=== PATIENT | male | born 1980 | race Caucasian/White ===

== ENCOUNTER → 2016-08-05 | Outpatient (CLI) | payer MEDICAID | LOC: RAD 12:28 | PROVIDERS: ATTEND Physician Assistant | DX: M54.5 Low back pain (principal) | CPT/HCPCS: 72148 ==

== ENCOUNTER → 2016-08-16 | Outpatient (CLI) | payer MEDICAID ==
[2016-08-16 12:07] LABS: PV SEMEN COLOR STRAW
[2016-08-16 12:08] LABS: PV SEMEN LIQUEFACTION 35 MINUTES (<61); PV SEMEN PH 8.4 (>7.1); PV SEMEN VISCOSITY HIGH (NORMAL); PV VOLUME 2.8 mL (>1.9)
[2016-08-16 12:09] LABS: PV NONMOTILE COUNT1 0; PV NONMOTILE COUNT2 0; PV ROUND CELL CONCENTRATION 0.1 X10^6/mL (<5.1); PV ROUND CELL COUNT1 0; PV ROUND CELL COUNT2 2
== END ==
LOC: LAB 10:37
PROVIDERS: ATTEND Urology
DX: Z30.09 Encounter for other general counseling and advice on contraception (principal)
CPT/HCPCS: 89321

== ENCOUNTER 2016-12-06 13:32 | Observation (INO) | payer MEDICAID ==
[2016-12-06] MEDS ORDERED: ASPIRIN 81 MG TABLET, CHEWABLE PO ONE (13:50)
[2016-12-06] MEDS ORDERED: DILTIAZEM HCL/D5W 125 ML IV PRN (13:51)
[2016-12-06] MEDS ORDERED: DILTIAZEM HCL INJ 25 MG/5 ML VIAL IV ONE (13:51)
[2016-12-06 14:10] LABS: ABSOLUTE BASOPHILS # (AUTO) 0.1 10^3/uL (0.0-0.2); ABSOLUTE EOSINOPHILS # (AUTO) 0.1 10^3/uL (0.0-0.6); ABSOLUTE LYMPHOCYTES (AUTO) 3.6 10^3/uL (0.5-4.7); ABSOLUTE MONOCYTES (AUTO) 1.2 10^3/uL (0.1-1.4); BASOPHILS % (AUTO) 0.9 % (0-2); EOSINOPHILS % (AUTO) 0.8 % (0-6); HEMATOCRIT 50.2 % (37.9-51.0); HEMOGLOBIN 16.6 g/dL (13.5-17.0); HGB HCT DIFFERENCE -0.4; LYMPHOCYTES % (AUTO) 27.8 % (13-45); MEAN CORPUSCULAR HGB CONC 33.2 g/dL (32.0-36.0); MEAN CORPUSCULAR VOLUME 93 fl (80-97); MONOCYTES % (AUTO) 9.4 % (3-13); RED BLOOD COUNT 5.37 10^6/uL (4.35-5.55); RED CELL DISTRIBUTION WIDTH 13.3 % (11.5-14.0); SEGMENTED NEUTROPHILS % (AUTO) 61.1 % (42-78)
[2016-12-06 14:34] LABS: ALANINE AMINOTRANSFERASE 37 U/L (21-72); ALBUMIN 4.5 g/dL (3.5-5.0); ALKALINE PHOSPHATASE 90 U/L (38-126); ANION GAP 13 (5-19); ASPARTATE AMINO TRANSFERASE 25 U/L (17-59); BILIRUBIN,DIRECT 0.5 mg/dL (0.0-0.4); BILIRUBIN,TOTAL 0.8 mg/dL (0.2-1.3); BLOOD UREA NITROGEN 16 mg/dL (7-20); CALCIUM 11.2 mg/dL (8.4-10.2); CARBON DIOXIDE 22 mmol/L (22-30); CHLORIDE 108 mmol/L (98-107); CREATINE KINASE 26 U/L (55-170); CREATININE RESULT 0.84 mg/dL (0.52-1.25); GLUCOSE 92 mg/dL (75-110); POTASSIUM 4.5 mmol/L (3.6-5.0); SODIUM 142.7 mmol/L (137-145); TOTAL PROTEIN 8.1 g/dL (6.3-8.2)
[2016-12-06 14:48] LABS: CREATINE KINASE MB < 0.22 ng/mL (<4.55); TROPONIN I < 0.012 ng/mL
--- NOTE | 2016-12-06 14:58 | RADIOLOGY REPORT (SQ) ---
EXAM DESCRIPTION: CHEST SINGLE VIEW COMPLETED DATE/TIME: 12/06/2016 2:26 pm REASON FOR STUDY: afib COMPARISON: 01/08/2016 NUMBER OF VIEWS: One view. TECHNIQUE: Single frontal radiographic view of the chest acquired. LIMITATIONS: None. FINDINGS: LUNGS AND PLEURA: The lungs are clear of infiltrate or pleural effusion. A subcentimeter focal density is seen in the left mid lung field, pulmonary nodule not excluded. Consider followup P A and lateral views in the department when the patient's condition permits. MEDIASTINUM AND HILAR STRUCTURES: No masses. Contour normal. HEART AND VASCULAR STRUCTURES: Heart normal in size. Normal vasculature. BONES: No acute findings. HARDWARE: None in the chest. OTHER: No other significant finding. IMPRESSION: Normal heart size. Subcentimeter focal density left mid lung field. COMMENT: Consider followup PA and lateral views in the department when patient's condition permits. TECHNICAL DOCUMENTATION: JOB ID: [id number] [employer]- All Rights Reserved
--- NOTE | 2016-12-06 15:29 | ER Document Report ---
ED General - General Chief Complaint: Arrhythmia Stated Complaint: SHORTNESS OF BREATH Time Seen by Provider: 12/06/16 13:42 Mode of Arrival: Ambulatory Information source: Patient Notes: 36-year-old male history of Marfan syndrome on flecamide complains of palpitations and A. fib. Patient admits to shortness of breath denies any chest pain, patient does admit to mild headache which did resolve. Patient denies any fevers or chills TRAVEL OUTSIDE OF THE [place] IN LAST 30 DAYS: No - HPI Onset: Just prior to arrival Onset/Duration: Sudden Quality of pain: Achy Severity: Moderate Pain Level: 2 Associated symptoms: Shortness of breath, Other Exacerbated by: Denies Relieved by: Denies Similar symptoms previously: Yes Recently seen / treated by doctor: Yes - Related Data Allergies/Adverse Reactions: hydrocodone [Hydrocodone] Allergy (Severe, Verified 09/03/15 14:39) Anaphylaxis Sulfa (Sulfonamide Antibiotics) Adverse Reaction (Severe, Verified 09/03/15 14: 39) hydromorphone HCl [From Dilaudid] Adverse Reaction (Intermediate, Verified 09/03 14:39) Past Medical History - Social History Smoking Status: Current Every Day Smoker Cigarette use (# per day): Yes Chew tobacco use (# tins/day): No Smoking Education Provided: No Frequency of alcohol use: Rare Drug Abuse: None Family History: Reviewed & Not Pertinent - Past Medical History Cardiac Medical History: Reports: Hx Atrial Fibrillation, Hx Hypercholesterolemia, Hx Hypertension Endocrine Medical History: Reports: Hx Hypothyroidism Skin Medical History: Reports Hx MRSA Past Surgical History: Reports: Hx Orthopedic Surgery - Tendon repair on L thumb , Hx Thyroid Surgery - Thyroidectomy - Immunizations Hx Diphtheria, Pertussis, Tetanus Vaccination: Yes Review of Systems - Review of Systems Notes: PHYSICAL EXAMINATION: GENERAL: Well-appearing, well-nourished and in no acute distress. HEAD: Atraumatic, normocephalic. EYES: Pupils equal round and reactive to light, extraocular movements intact, sclera anicteric, conjunctiva are normal. ENT: Nares patent, oropharynx clear without exudates. Moist mucous membranes. NECK: Normal range of motion, supple without lymphadenopathy LUNGS: Breath sounds clear to auscultation bilaterally and equal. No wheezes rales or rhonchi. HEART: A. fib RVR ABDOMEN: Soft, nontender, nondistended abdomen. No guarding, no rebound. No masses appreciated. Musculoskeletal: Normal range of motion, no pitting or edema. No cyanosis. NEUROLOGICAL: Cranial nerves grossly intact. Normal speech, normal gait. Normal sensory, motor exams PSYCH: Normal mood, normal affect. SKIN: Warm, Dry, normal turgor, no rashes or lesions noted. Physical Exam - Vital signs Vitals: Pulse Ox 98 12/06/16 13:50 Course - Re-evaluation Re-evalutation: 12/06/16 15:56 Patient was immediately started on Cardizem bolus and drip, his heart rate goes between 90s-110 on the Cardizem. I will admit the patient to the hospitalist service and is otherwise well-appearing, he notes his shortness of breath and headache have since resolved and he feels much better - Vital Signs Vital signs: Temp Pulse Resp BP Pulse Ox 97.7 F 137 H 20 127/89 H 99 12/06/16 14:00 12/06/16 14:00 12/06/16 14:00 12/06/16 14:00 12/06/16 14:00 - Laboratory Result Diagrams: 12/06/16 13:55 12/06/16 13:55 Laboratory results interpreted by me: 12/06/16 12/06/16 13:55 13:55 WBC 13.0 H Chloride 108 H Calcium 11.2 H Direct Bilirubin 0.5 H Creatine Kinase 26 L - Diagnostic Test Radiology reviewed: Image reviewed, Reports reviewed - Report given to patient - EKG Interpretation by Me EKG shows normal: Sinus rhythm, [place], Intervals, QRS Complexes - A. fib RVR Critical Care Note - Critical Care Note Total time excluding time spent on procedures (mins): 34 Comments: 36-year-old male history of Marfan syndrome A. fib presents in A. fib. Patient admits to shortness of breath with the breathing. Patient notes his heart rate is normally well controlled with his flecainide. Patient denies any chest pain shortness breath. Patient had a headache and dizziness and shortness of breath initially but on arrival symptoms have resolved with medication Discharge - Discharge Clinical Impression: Marfans syndrome, Atrial fibrillation with RVR Condition: Stable Disposition: ADMITTED OBSERVATION Admitting Provider: Hospitalist Unit Admitted: IMCU Referrals: CRISS TONEY NP [Primary Care Provider] - Follow up as needed
[2016-12-06] MEDS ORDERED: ONDANSETRON HCL INJ/PF 4 MG/2 ML SDV IV PRN (16:30)
[2016-12-06] MEDS ORDERED: OXYCODONE-ACETAMINOPHEN 5-325 MG TABLET PO PRN ×3 (16:30→18:53)
[2016-12-06] MEDS ORDERED: ONDANSETRON 4 MG TAB.RAPDIS PO PRN (16:30)
[2016-12-06] MEDS ORDERED: ACETAMINOPHEN 325 MG TABLET PO PRN (16:30)
[2016-12-06] MEDS ORDERED: CYCLOBENZAPRINE HCL 10 MG TABLET PO PRN (16:40)
--- NOTE | 2016-12-06 17:01 | PDOC H&P ---
History of Present Illness Admission Date/PCP: 12/06/16 15:59 CRISS TONEY NP Patient complains of: Atrial fibrillation with chest discomfort History of Present Illness: DAQUAN SALAZAR is a 36 year old male with known history of atrial fibrillation and a history of Marfan's syndrome who presents with A. fib with rapid ventricular rate. Patient reports that around noon he began having palpitations and a heart rate of 150. Patient also had some chest tightness associated with this. Once his heart rate was decreased with the diltiazem IV his chest discomfort went away. At the time of my exam the patient had converted back into a normal sinus rhythm. The patient currently is chest pain- free. He reports he is followed by Dr. Hathaway at [facility]. He has not had a ablation. The patient on flecainide and atenolol for control of his heart rate. To any fevers or chills. He denies any cough. He denies any orthopnea PND or lower extremity edema. He does have hypothyroidism and has been compliant with his Synthroid and his TSH is normal. Past Medical History Cardiac Medical History: Reports: Atrial Fibrillation, Hyperlipidema, Hypertension Neurological Medical History: Reports: None Endocrine Medical History: Reports: Hypothyroidism Malignancy Medical History: Reports: Other - Thyroid cancer Musculoskeltal Medical History: Reports: Arthritis, Other - Marfan syndrome Psychiatric Medical History: Reports: None Infectious Medical History: Reports: Methicillin-Resistant Staph Aureus Past Surgical History Past Surgical History: Reports: Orthopedic Surgery - Tendon repair on L thumb, Thyroidectomy - Secondary to thyroid cancer. Social History Information Source: Patient Lives with: Spouse/Significant other Smoking Status: Current Every Day Smoker Frequency of Alcohol Use: Social Hx Recreational Drug Use: No Drugs: None Hx Prescription Drug Abuse: No - Advance Directive Resuscitation Status: Full Code Surrogate healthcare decision maker:: His Family History Family History: mother is alive and 57. She had a tumor of the adrenal gland removed. His father at age 36 from an aneurysmal rupture secondary to Marfan syndrome Parental Family History Reviewed: Yes Children Family History Reviewed: No Sibling(s) Family History Reviewed.: No Medication/Allergy Allergies/Adverse Reactions: hydrocodone [Hydrocodone] Allergy (Severe, Verified 09/03/15 14:39) Anaphylaxis Sulfa (Sulfonamide Antibiotics) Adverse Reaction (Severe, Verified 09/03/15 14: 39) hydromorphone HCl [From Dilaudid] Adverse Reaction (Intermediate, Verified 09/03 14:39) Review of Systems Constitutional: ABSENT: chills, fever(s), headache(s), weight gain, weight loss Eyes: ABSENT: visual disturbances Ears: ABSENT: hearing changes Cardiovascular: PRESENT: chest pain, dyspnea on exertion, palpitations. ABSENT : edema, orthropnea Respiratory: ABSENT: cough, hemoptysis Gastrointestinal: ABSENT: abdominal pain, constipation, diarrhea, hematemesis, hematochezia, nausea, vomiting Genitourinary: ABSENT: dysuria, hematuria Musculoskeletal: ABSENT: joint swelling Integumentary: ABSENT: rash, wounds Neurological: ABSENT: abnormal gait, abnormal speech, confusion, dizziness, focal weakness, syncope Psychiatric: ABSENT: anxiety, depression, homidical ideation, suicidal ideation Endocrine: ABSENT: cold intolerance, heat intolerance, polydipsia, polyuria Physical Exam Vital Signs: Temp Pulse Resp BP Pulse Ox 97.7 F 137 H 12 130/97 H 98 12/06/16 14:00 12/06/16 14:00 12/06/16 16:01 12/06/16 16:01 12/06/16 16:01 General appearance: PRESENT: no acute distress, well-developed, well-nourished Head exam: PRESENT: atraumatic, normocephalic Eye exam: PRESENT: conjunctiva pink, EOMI, PERRLA. ABSENT: scleral icterus Ear exam: PRESENT: normal external ear exam Mouth exam: PRESENT: moist, tongue midline Neck exam: ABSENT: carotid bruit, JVD, lymphadenopathy, thyromegaly Respiratory exam: PRESENT: clear to auscultation melanie. ABSENT: rales, rhonchi, wheezes Cardiovascular exam: PRESENT: RRR. ABSENT: diastolic murmur, rubs, systolic murmur Pulses: PRESENT: normal dorsalis pedis pul Vascular exam: PRESENT: normal capillary refill GI/Abdominal exam: PRESENT: normal bowel sounds, soft. ABSENT: distended, guarding, mass, organolmegaly, rebound, tenderness Rectal exam: PRESENT: deferred Extremities exam: ABSENT: calf tenderness, clubbing, pedal edema Neurological exam: PRESENT: alert, awake, oriented to person, oriented to place , oriented to time, oriented to situation, CN II-XII grossly intact. ABSENT: motor sensory deficit Psychiatric exam: PRESENT: appropriate affect, normal mood. ABSENT: homicidal ideation, suicidal ideation Skin exam: PRESENT: dry, intact, warm. ABSENT: cyanosis, rash Results Impressions: Chest X-Ray 12/06/16 13:50 IMPRESSION: Normal heart size. Subcentimeter focal density left mid lung field. Assessment & Plan - Diagnosis (1) Atrial fibrillation with RVR Is this a current diagnosis for this admission?: YesPlan: Is currently on flecainide, and atenolol. He has been on a diltiazem drip with resumption of normal sinus rhythm. Will start on p.o. diltiazem. Check serial cardiac enzymes to make certain he has not had an acute cardiac event. (2) Hypothyroidism Is this a current diagnosis for this admission?: YesPlan: Is on Synthroid. His TSH is normal. (3) Back pain Is this a current diagnosis for this admission?: YesPlan: Continue with Flexeril and oxycodone. (4) Aortic aneurysm Is this a current diagnosis for this admission?: Yes (5) Marfans syndrome Is this a current diagnosis for this admission?: Yes - Time Time Spent: 50 to 70 Minutes - Inpatient Certification Medical Necessity: Need Close Monitoring Due to Risk of Patient Decompensation - Plan Summary Plan Summary: We will admit as an observation since he has had resumption of normal sinus rhythm.
[2016-12-06] MEDS ORDERED: CELECOXIB 200 MG CAPSULE PO SCH (18:00)
[2016-12-06] MEDS: DILTIAZEM HCL 30 MG TABLET PO SCH ×2 (18:34→23:30)
[2016-12-06] MEDS ORDERED: OXYCODONE HCL IR 5 MG TABLET PO PRN (18:52)
--- NOTE | 2016-12-06 19:24 | EKG REPORT ---
SEVERITY:- ABNORMAL ECG - ATRIAL FLUTTER, A-RATE [address] DEPRESSION, DIFFUSE LEADS ABNORMAL T, CONSIDER ISCHEMIA, DIFFUSE LEADS BORDERLINE PROLONGED QT INTERVAL : Confirmed by: Justin Moctezuma MD 06-Dec-2016 19:22:48
[2016-12-06 21:27] LABS: CREATINE KINASE MB < 0.22 ng/mL (<4.55); TROPONIN I < 0.012 ng/mL
[2016-12-06] MEDS ORDERED: FLECAINIDE ACETATE 100 MG TABLET PO SCH (22:00)
[2016-12-06] MEDS ORDERED: NICOTINE 7 MG/24 HR PATCH.TD24 TD ONE (22:00)
[2016-12-07 02:10] LABS: HEMATOCRIT 42.4 % (37.9-51.0); HEMOGLOBIN 14.2 g/dL (13.5-17.0); HGB HCT DIFFERENCE 0.2; MEAN CORPUSCULAR HGB CONC 33.6 g/dL (32.0-36.0); MEAN CORPUSCULAR VOLUME 93 fl (80-97); RED BLOOD COUNT 4.59 10^6/uL (4.35-5.55); RED CELL DISTRIBUTION WIDTH 13.1 % (11.5-14.0); WHITE BLOOD COUNT 11.3 10^3/uL (4.0-10.5)
[2016-12-07 02:36] LABS: ANION GAP 9 (5-19); BLOOD UREA NITROGEN 19 mg/dL (7-20); CALCIUM 9.6 mg/dL (8.4-10.2); CARBON DIOXIDE 25 mmol/L (22-30); CHLORIDE 106 mmol/L (98-107); CREATININE RESULT 0.91 mg/dL (0.52-1.25); GLUCOSE 90 mg/dL (75-110); MAGNESIUM 2.1 mg/dL (1.6-2.3); POTASSIUM 4.3 mmol/L (3.6-5.0); SODIUM 140.4 mmol/L (137-145)
[2016-12-07 02:37] LABS: CREATINE KINASE < 20 U/L (55-170)
[2016-12-07 02:45] LABS: CREATINE KINASE MB < 0.22 ng/mL (<4.55); TROPONIN I < 0.012 ng/mL
[2016-12-07 05:54] VITALS: BP 129/63
[2016-12-07] MEDS: DILTIAZEM HCL 30 MG TABLET PO SCH (05:59)
[2016-12-07] MEDS ORDERED: DILTIAZEM HCL 120 MG CAP.SR.24H PO ONE (08:45)
[2016-12-07 09:01] LABS: CREATINE KINASE MB < 0.22 ng/mL (<4.55); TROPONIN I < 0.012 ng/mL
[2016-12-07] MEDS ORDERED: ASPIRIN 325 MG TABLET, ENT COATED PO SCH (10:00)
[2016-12-07] MEDS ORDERED: ATENOLOL 50 MG TABLET PO SCH (10:00)
[2016-12-07] MEDS ORDERED: LEVOTHYROXINE SODIUM 0.1 MG TABLET PO SCH (10:00)
--- NOTE | 2016-12-07 10:30 | PDOC DISCHARGE SUMMARY ---
General - Admit/Disc Date/PCP Admission Date/Primary Care Provider: 12/06/16 15:59 CRISS TONEY NP Discharge Date: 12/07/16 - Discharge Diagnosis (1) Atrial fibrillation with RVR Is this a current diagnosis for this admission?: YesSummary: resumption of normal sinus rhythm after being on diltiazem. (2) Hypothyroidism Is this a current diagnosis for this admission?: YesSummary: Normal TSH (3) Back pain Is this a current diagnosis for this admission?: Yes (4) Aortic aneurysm Is this a current diagnosis for this admission?: Yes (5) Marfans syndrome Is this a current diagnosis for this admission?: Yes - Additional Information Resuscitation Status: Full Code Discharge Diet: Cardiac Discharge Activity: Activity As Tolerated Home Medications: Atenolol [Tenormin 100 mg Tablet] 100 mg PO DAILY 12/06/16 Celecoxib [Celebrex 200 mg Capsule] 200 mg PO Q12 12/06/16 Cyclobenzaprine HCl [Flexeril 10 mg Tablet] 20 mg PO QHS 12/06/16 Flecainide 50 Mg 75 mg PO Q12 12/06/16 Levothyroxine Sodium [Synthroid] 200 mcg PO QAM 12/06/16 Oxycodone HCl/Acetaminophen [Percocet 10-325 mg Tablet] 1 each PO QIDP PRN 12/06 Pramipexole Di-HCl [Mirapex 0.25 mg Tablet] 0.5 mg PO QHS 12/06/16 Aspirin [Ecotrin 325 mg EC Tablet] 325 mg PO DAILY tabec 12/07/16 Diltiazem HCl [Cardizem Cd 120 mg Capsule] 1 cap.sr PO DAILY #30 cap.sr History of Present Illness History of Present Illness: DAQUAN SALAZAR is a 36 year old male with known history of atrial fibrillation and a history of Marfan's syndrome who presents with A. fib with rapid ventricular rate. Patient reports that around noon he began having palpitations and a heart rate of 150. Patient also had some chest tightness associated with this. Once his heart rate was decreased with the diltiazem IV his chest discomfort went away. At the time of my exam the patient had converted back into a normal sinus rhythm. The patient currently is chest pain- free. He reports he is followed by Dr. Hathaway at [facility]. He has not had a ablation. The patient on flecainide and atenolol for control of his heart rate. To any fevers or chills. He denies any cough. He denies any orthopnea PND or lower extremity edema. He does have hypothyroidism and has been compliant with his Synthroid and his TSH is normal. Hospital Course Hospital Course: Has a history of atrial fibrillation and Marfan syndrome who presented with atrial fibrillation with rapid ventricular rate. The patient was started on a diltiazem drip. The patient had conversion back to a normal sinus rhythm. The patient had been on flecainide and atenolol. The patient was changed from IV diltiazem to p.o. diltiazem. He was continued on with the flecainide and atenolol. The patient is followed by electrophysiology Dr. Hathaway at [facility]. He is instructed to follow-up with him in the next 1-2 weeks. Physical Exam Vital Signs: Temp Pulse Resp BP Pulse Ox 97.8 F 67 16 129/63 H 94 12/07/16 08:33 12/07/16 08:33 12/07/16 08:33 12/07/16 08:33 12/07/16 08:33 Intake & Output 12/06/16 12/07/16 12/08/16 06:59 06:59 06:59 Intake Total 200 Balance 200 Weight 125 kg General appearance: PRESENT: no acute distress Eye exam: PRESENT: conjunctiva pink. ABSENT: scleral icterus Mouth exam: PRESENT: moist, tongue midline Neck exam: ABSENT: JVD Respiratory exam: PRESENT: clear to auscultation melanie. ABSENT: rales, rhonchi, wheezes Cardiovascular exam: PRESENT: RRR. ABSENT: diastolic murmur, rubs, systolic murmur GI/Abdominal exam: PRESENT: normal bowel sounds, soft. ABSENT: distended, guarding, mass, organolmegaly, rebound, tenderness Extremities exam: ABSENT: calf tenderness, clubbing, pedal edema Neurological exam: PRESENT: alert, awake, oriented to person, oriented to place , oriented to time, oriented to situation, CN II-XII grossly intact. ABSENT: motor sensory deficit Psychiatric exam: PRESENT: appropriate affect Skin exam: PRESENT: dry, intact, warm. ABSENT: cyanosis, rash Results Laboratory Results: 12/07/16 01:58 12/07/16 01:58 12/07/16 12/07/16 01:58 01:58 WBC 11.3 H RBC 4.59 Hgb 14.2 D Hct 42.4 MCV 93 MCH 31.0 MCHC 33.6 RDW 13.1 Plt Count 174 Sodium 140.4 Potassium 4.3 Chloride 106 Carbon Dioxide 25 Anion Gap 9 BUN 19 Creatinine 0.91 Est GFR ( Amer) > 60 Est GFR (Non-Af Amer) > 60 Glucose 90 Calcium 9.6 Magnesium 2.1 12/06/16 12/06/16 12/07/16 20:10 20:10 01:58 Creatine Kinase < 20 L CK-MB (CK-2) < 0.22 < 0.22 Troponin I < 0.012 < 0.012 12/07/16 12/07/16 01:58 08:05 Creatine Kinase < 20 L CK-MB (CK-2) < 0.22 Troponin I < 0.012 Impressions: Chest X-Ray 12/06/16 13:50 IMPRESSION: Normal heart size. Subcentimeter focal density left mid lung field. Qualifiers PATEINT BEING DISCHARGED WITH ANY OF THE FOLLOWING DIAGNOSIS?: No Plan Discharge Plan: Is discharged home. Will follow up with his signal timer in 1-2 weeks. Time Spent: Less than 30 Minutes
== END 2016-12-07 09:13 | disposition home or self-care (01) ==
LOC: ER 13:32 → INTOOBSV 15:59 → EH 15:59 → 3W 18:00
PROVIDERS: ADMIT Family Medicine; ATTEND Family Medicine
DX: I48.91 Unspecified atrial fibrillation (principal); E03.9 Hypothyroidism, unspecified; M54.9 Dorsalgia, unspecified; I71.9 Aortic aneurysm of unspecified site, without rupture; Q87.40 Marfan syndrome, unspecified; F17.210 Nicotine dependence, cigarettes, uncomplicated; M19.90 Unspecified osteoarthritis, unspecified site; R51 Headache; Z79.899 Other long term (current) drug therapy; Z79.82 Long term (current) use of aspirin; Z79.1 Long term (current) use of non-steroidal anti-inflammatories (NSAID); Z79.891 Long term (current) use of opiate analgesic; Z85.850 Personal history of malignant neoplasm of thyroid; Z98.890 Other specified postprocedural states; Z84.81 Family history of carrier of genetic disease
CPT/HCPCS: 93005; 96376; 99291; 96365; 96366; 36415 ×2; 82553 ×2; 82550 ×2; 83735; 84443; 85025; 85027; 80048; 80053; 84484 ×2; 71010; 93010; G0378 ×3; J3490 ×10

== ENCOUNTER 2016-12-13 17:10 | Emergency (ER) | payer MEDICAID ==
--- NOTE | 2016-12-13 20:28 | ER Document Report ---
ED GI/ - General Chief Complaint: L flank pain, lower back pain and nausea Stated Complaint: FLANK PAIN Time Seen by Provider: 12/13/16 20:28 Mode of Arrival: Ambulatory Information source: Patient Notes: 36 yo with Marfan's syndrome, male noticed pain 2-3 days ago lower left quadrant of abdomen causing him to double over, get nauseated, went away after BM. Pain recurred at 2 pm stabbing left flank, radiates into left testicle, waxes and wanes. Now the pain is 2/5 with ache and pressure after morphine. No hx stones. No change in urine stream, no fever or chills. Torodol given on ambulance. TRAVEL OUTSIDE OF THE [place] IN LAST 30 DAYS: No - Related Data Allergies/Adverse Reactions: hydrocodone [Hydrocodone] Allergy (Severe, Verified 09/03/15 14:39) Anaphylaxis Sulfa (Sulfonamide Antibiotics) Adverse Reaction (Severe, Verified 09/03/15 14: 39) hydromorphone HCl [From Dilaudid] Adverse Reaction (Intermediate, Verified 09/03 14:39) Past Medical History - General Information source: Patient - Social History Smoking Status: Unknown if Ever Smoked Frequency of alcohol use: None Drug Abuse: None Lives with: Spouse/Significant other Family History: Reviewed & Not Pertinent - Past Medical History Cardiac Medical History: Reports: Hx Atrial Fibrillation, Hx Heart Attack - x2 Dr. Mirza was dr on last hrt attack, Hx Hypercholesterolemia, Hx Hypertension Endocrine Medical History: Reports: Hx Hypothyroidism Renal/ Medical History: Denies: Hx Peritoneal Dialysis Musculoskeltal Medical History: Reports Hx Arthritis Skin Medical History: Reports Hx MRSA Infectious Medical History: Reports: Hx MRSA Past Surgical History: Reports: Hx Orthopedic Surgery - Tendon repair on L thumb , Hx Thyroid Surgery - Thyroidectomy - Immunizations Hx Diphtheria, Pertussis, Tetanus Vaccination: Yes Review of Systems - Review of Systems Constitutional: No symptoms reported EENT: No symptoms reported Cardiovascular: No symptoms reported Respiratory: No symptoms reported Gastrointestinal: See HPI Genitourinary: See HPI Male Genitourinary: No symptoms reported Musculoskeletal: No symptoms reported Skin: No symptoms reported Hematologic/Lymphatic: No symptoms reported Neurological/Psychological: No symptoms reported Physical Exam - Vital signs Vitals: Temp Pulse Resp BP Pulse Ox 98.1 F 74 20 125/76 97 12/13/16 18:45 12/13/16 18:45 12/13/16 18:45 12/13/16 18:45 12/13/16 18:45 Interpretation: Normal - General General appearance: Appears well, Alert - HEENT Head: Normocephalic, Atraumatic Eyes: Normal Conjunctiva: Normal Pupils: PERRL Pharynx: Normal Neck: Supple. No: Lymphadenopathy - Respiratory Respiratory status: No respiratory distress Chest status: Nontender Breath sounds: Normal Chest palpation: Normal - Cardiovascular Rhythm: Regular Heart sounds: Normal auscultation Murmur: No - Abdominal Inspection: Normal Distension: No distension Bowel sounds: Normal Tenderness: Tender - llq. No: McBurney's point Organomegaly: No organomegaly - Back Back: Normal, Nontender - Extremities General upper extremity: Normal inspection, Nontender, Normal color, Normal ROM , Normal temperature General lower extremity: Normal inspection, Nontender, Normal color, Normal ROM , Normal temperature, Normal weight bearing. No: Radha's sign - Neurological Neuro grossly intact: Yes Cognition: Normal Orientation: AAOx4 [place] Coma Scale Eye Opening: Spontaneous [place] Coma Scale Verbal: Oriented [place] Coma Scale Motor: Obeys Commands [place] Coma Scale Total: 15 Speech: Normal Motor strength normal: LUE, RUE, LLE, RLE Sensory: Normal - Psychological Associated symptoms: Normal affect, Normal mood - Skin Skin Temperature: Warm Skin Moisture: Dry Skin Color: Normal Course - Re-evaluation Re-evalutation: 12/13/16 22:45 CT shows tiny distal left ureteral obstructing stone . patient is more comfortable after pain medication - Vital Signs Vital signs: Temp Pulse Resp BP Pulse Ox 98.1 F 74 20 136/97 H 99 12/13/16 18:45 12/13/16 18:45 12/13/16 18:45 12/13/16 22:23 12/13/16 22:23 - Laboratory Result Diagrams: 12/13/16 22:22 12/13/16 22:22 Laboratory results interpreted by me: 12/13/16 12/13/16 12/13/16 22:22 22:22 22:33 WBC 12.1 H Chloride 109 H Carbon Dioxide 20 L Urine Protein 30 H Urine Blood LARGE H Discharge - Discharge Clinical Impression: obstructing distal left ureter stone Condition: Good Disposition: HOME, SELF-CARE Instructions: Kidney Stone ([facility]), Flomax ([facility]), Oral Narcotic Medication ([facility]) , Antinausea Medication ([facility]) Additional Instructions: you can stop the flomax when the pain resolves pain Will go away when the stone is in the bladder return to Emergency room any increased pain fever urine culture is pending see urologist for follow up you were given 3 doses of morphine 5mg IV for the obstructive uropathy pain Prescriptions: Ibuprofen [Motrin 800 mg Tablet] 800 mg PO Q8HP PRN #20 tab PRN Reason: Tamsulosin HCl [Flomax 0.4 mg Cap.sr] 0.4 mg PO DAILY #6 cap.sr.24h Referrals: SANDRITA CHUA MD [[facility] DUVALL] - Follow up as needed
[2016-12-13] MEDS ORDERED: ONDANSETRON HCL INJ/PF 4 MG/2 ML SDV IV ONE (20:55)
[2016-12-13] MEDS: MORPHINE SULFATE 10 MG/ML INJ IV PRN ×2 (21:46→22:30)
[2016-12-13 22:32] LABS: ABSOLUTE BASOPHILS # (AUTO) 0.1 10^3/uL (0.0-0.2); ABSOLUTE EOSINOPHILS # (AUTO) 0.1 10^3/uL (0.0-0.6); ABSOLUTE LYMPHOCYTES (AUTO) 3.4 10^3/uL (0.5-4.7); ABSOLUTE MONOCYTES (AUTO) 1.1 10^3/uL (0.1-1.4); ABSOLUTE NEUT (AUTO) 7.3 10^3/uL (1.7-8.2); BASOPHILS % (AUTO) 0.9 % (0-2); EOSINOPHILS % (AUTO) 0.9 % (0-6); HEMATOCRIT 43.2 % (37.9-51.0); HEMOGLOBIN 14.2 g/dL (13.5-17.0); HGB HCT DIFFERENCE -0.6; MEAN CORPUSCULAR HEMOGLOBIN 30.7 pg (27.0-33.4); MEAN CORPUSCULAR HGB CONC 32.9 g/dL (32.0-36.0); MEAN CORPUSCULAR VOLUME 93 fl (80-97); MONOCYTES % (AUTO) 9.5 % (3-13); RED BLOOD COUNT 4.63 10^6/uL (4.35-5.55); SEGMENTED NEUTROPHILS % (AUTO) 60.7 % (42-78); WHITE BLOOD COUNT 12.1 10^3/uL (4.0-10.5)
[2016-12-13 22:35] VITALS: BP 136/97
[2016-12-13 22:49] LABS: ALANINE AMINOTRANSFERASE 47 U/L (21-72); ALBUMIN 3.9 g/dL (3.5-5.0); ALKALINE PHOSPHATASE 90 U/L (38-126); ANION GAP 12 (5-19); ASPARTATE AMINO TRANSFERASE 20 U/L (17-59); BILIRUBIN,DIRECT 0.3 mg/dL (0.0-0.4); BILIRUBIN,TOTAL 0.4 mg/dL (0.2-1.3); BLOOD UREA NITROGEN 13 mg/dL (7-20); CALCIUM 9.3 mg/dL (8.4-10.2); CARBON DIOXIDE 20 mmol/L (22-30); CHLORIDE 109 mmol/L (98-107); CREATININE RESULT 1.17 mg/dL (0.52-1.25); GLUCOSE 86 mg/dL (75-110); LIPASE 65.2 U/L (23-300); POTASSIUM 3.9 mmol/L (3.6-5.0); SODIUM 140.9 mmol/L (137-145)
--- NOTE | 2016-12-13 22:52 | RADIOLOGY REPORT (SQ) ---
EXAM DESCRIPTION: CT LTD RENAL STONE PROTOCOL ON COMPLETED DATE/TIME: 12/13/2016 10:36 pm REASON FOR STUDY: LLQ pain, Left flank pain COMPARISON: None. TECHNIQUE: CT scan of the abdomen and pelvis performed without intravenous or oral contrast. Images reviewed with lung, soft tissue, and bone windows. Reconstructed coronal and sagittal MPR images revi ewed. All images stored on PACS. All CT scanners at this facility use dose modulation, iterative reconstruction, and/or weight based d osing when appropriate to reduce radiation dose to as low as reasonably achievable (ALARA). [facility]: Dose Right [facility]: CareDose [facility]: Dose Right [facility]: Teradose 4D [facility]: Fluent Home RADIATION DOSE: 24.61mGy. LIMITATIONS: None. FINDINGS: LOWER CHEST: No significant findings. No nodules or infiltrates. NON-CONTRASTED LIVER, SPLEEN, ADRENALS: Evaluation limited by lack of IV contrast. No identified sign ificant masses. PANCREAS: No masses. No peripancreatic inflammatory changes. GALLBLADDER: No identified stones by CT criteria. No inflammatory changes to suggest cholecystitis. RIGHT KIDNEY AND URETER: No suspicious masses. Assessment limited by lack of IV contrast. No signif icant calcifications. No hydronephrosis or hydroureter. LEFT KIDNEY AND URETER: No suspicious masses. Assessment limited by lack of IV contrast. No renal c alculi are identified. A tiny obstructing calculus is identified in the distal left ureter. There is mild hydronephrosis of the left kidney and fullness of the left ureter proximal to the level of th e obstructing calculus. AORTA AND RETROPERITONEUM: No aneurysm. No retroperitoneal masses or adenopathy. BOWEL AND PERITONEAL CAVITY: No obvious masses or inflammatory changes. No free fluid. APPENDIX: Normal. PELVIS, BLADDER, AND ABDOMINAL WALL:No abnormal masses. No free fluid. Bladder normal. BONES: No significant findings. OTHER: No other significant finding. IMPRESSION: Tiny obstructing calculus in the distal left ureter is noted above. No renal calculi ar e identified. Other findings as noted above TECHNICAL DOCUMENTATION: JOB ID: [id number] Quality ID # [id number]: Final reports with documentation of one or more dose reduction techniques (e.g., Au tomated exposure control, adjustment of the mA and/or kV according to patient size, use of iterative reconstruction technique) 2010 [employer]- All Rights Reserved
[2016-12-13] MEDS ORDERED: TAMSULOSIN HCL 0.4 MG CAP.SR.24H PO ONE (23:08)
[2016-12-13] MEDS ORDERED: ONDANSETRON ODT 4 MG TAB (6 TAB/DSPK) PO PRN (23:13)
[2016-12-13] MEDS ORDERED: MORPHINE SULFATE 10 MG/ML INJ IV ONE (23:24)
[2016-12-13 23:33] LABS: APPEARANCE,URINE CLOUDY; BILIRUBIN,URINE NEGATIVE (NEGATIVE); GLUCOSE, URINE NEGATIVE (NEGATIVE); KETONES,URINE NEGATIVE (NEGATIVE); LEUKOCYTE ESTERASE,URINE NEGATIVE (NEGATIVE); NITRITE,URINE NEGATIVE (NEGATIVE); PROTEIN,URINE 30 mg/dL (NEGATIVE); URINE SPECIFIC GRAVITY 1.015; UROBILINOGEN,URINE NEGATIVE mg/dL (<2.0)
== END 2016-12-14 00:12 | disposition home or self-care (01) ==
LOC: ER 17:10
DX: N20.1 Calculus of ureter (principal); R10.9 Unspecified abdominal pain; M54.5 Low back pain; R11.0 Nausea; E78.00 Pure hypercholesterolemia, unspecified; E03.9 Hypothyroidism, unspecified; I48.91 Unspecified atrial fibrillation; Z88.2 Allergy status to sulfonamides; Z88.6 Allergy status to analgesic agent; Z86.14 Personal history of Methicillin resistant Staphylococcus aureus infection; I25.2 Old myocardial infarction
CPT/HCPCS: 96376; 99284; 96374; 96375; 36415; 87086; 83690; 85025; 80053; 81001; 76380; J2270 ×2; J3490; J2405

== ENCOUNTER 2017-02-28 17:01 | Emergency (ER) | payer MEDICAID ==
--- NOTE | 2017-02-28 17:33 | ER Document Report ---
ED Medical Screen (RME) - General Chief Complaint: Abdominal Pain Stated Complaint: ABDOMINAL PAIN,NAUSEA Time Seen by Provider: 02/28/17 17:29 Mode of Arrival: Ambulatory Information source: Patient Notes: 36-year-old male presents with complaints of constipation, he notes he has not had a bowel movement 3 days has attempted multiple methods to remove the stool. Patient denies any vomiting but admits to nausea denies any previous similar episodes I have greeted and performed a rapid initial assessment of this patient. A comprehensive ED assessment and evaluation of the patient, analysis of test results and completion of the medical decision making process will be conducted by additional ED providers. PHYSICAL EXAMINATION: GENERAL: Well-appearing, well-nourished and in no acute distress. HEAD: Atraumatic, normocephalic. EYES: Pupils equal round extraocular movements intact, conjunctiva are normal. ENT: Nares patent NECK: Normal range of motion LUNGS: No respiratory distress Musculoskeletal: Normal range of motion NEUROLOGICAL: Normal speech, normal gait. PSYCH: Normal mood, normal affect. SKIN: Warm, Dry, normal turgor, no rashes or lesions noted. TRAVEL OUTSIDE OF THE [place] IN LAST 30 DAYS: No - Related Data Allergies/Adverse Reactions: hydrocodone [Hydrocodone] Allergy (Severe, Verified 02/28/17 17:04) Anaphylaxis Sulfa (Sulfonamide Antibiotics) Adverse Reaction (Severe, Verified 02/28/17 17: 04) hydromorphone HCl [From Dilaudid] Adverse Reaction (Intermediate, Verified 02/28 17:04) Past Medical History - Social History Frequency of alcohol use: None Drug Abuse: None - Past Medical History Cardiac Medical History: Reports: Hx Atrial Fibrillation, Hx Heart Attack - x2 Dr. Mirza was dr on last hrt attack, Hx Hypercholesterolemia, Hx Hypertension Endocrine Medical History: Reports: Hx Hypothyroidism Renal/ Medical History: Denies: Hx Peritoneal Dialysis Musculoskeltal Medical History: Reports Hx Arthritis Skin Medical History: Reports Hx MRSA Infectious Medical History: Reports: Hx MRSA Past Surgical History: Reports: Hx Orthopedic Surgery - Tendon repair on L thumb , Hx Thyroid Surgery - Thyroidectomy - Immunizations Hx Diphtheria, Pertussis, Tetanus Vaccination: Yes
[2017-02-28] MEDS ORDERED: LACTULOSE SYRUP 20 GM/30 ML UDCUP PO ONE (18:26)
[2017-02-28] MEDS ORDERED: MINERAL OIL ENEMA 133 ML PR ONE (18:52)
--- NOTE | 2017-02-28 18:58 | ER Document Report ---
ED General - General Chief Complaint: Abdominal Pain Stated Complaint: ABDOMINAL PAIN,NAUSEA Time Seen by Provider: 02/28/17 17:29 Mode of Arrival: Ambulatory Notes: Patient is a 36-year-old male with past medical history of Marfan syndrome who presents without being able have a bowel movement in 3 days. States he has tried milk of magnesia as well as a suppository at home without any relief. Describes an intermittent mild, cramping abdominal pain that is diffuse in nature and not present at time of this evaluation. Denies history of similar symptoms in the past. Admits that he was using prescribed narcotics up until 5 days ago. States he normally has a daily bowel movement. Denies any vomiting, shortness of breath or chest pain. No prior history of abdominal surgery. He has not seen his primary care doctor regarding today's concerns. TRAVEL OUTSIDE OF THE [place] IN LAST 30 DAYS: No - Related Data Allergies/Adverse Reactions: hydrocodone [Hydrocodone] Allergy (Severe, Verified 02/28/17 17:04) Anaphylaxis Sulfa (Sulfonamide Antibiotics) Adverse Reaction (Severe, Verified 02/28/17 17: 04) hydromorphone HCl [From Dilaudid] Adverse Reaction (Intermediate, Verified 02/28 17:04) Past Medical History - General Information source: Patient - Social History Smoking Status: Current Every Day Smoker Frequency of alcohol use: None Drug Abuse: None Lives with: Spouse/Significant other Family History: Reviewed & Not Pertinent Patient has suicidal ideation: No Patient has homicidal ideation: No - Past Medical History Cardiac Medical History: Reports: Hx Atrial Fibrillation, Hx Heart Attack - x2 Dr. Mirza was dr on last hrt attack, Hx Hypercholesterolemia, Hx Hypertension Endocrine Medical History: Reports: Hx Hypothyroidism Renal/ Medical History: Denies: Hx Peritoneal Dialysis Musculoskeltal Medical History: Reports Hx Arthritis Skin Medical History: Reports Hx MRSA Infectious Medical History: Reports: Hx MRSA Past Surgical History: Reports: Hx Orthopedic Surgery - Tendon repair on L thumb , Hx Thyroid Surgery - Thyroidectomy - Immunizations Hx Diphtheria, Pertussis, Tetanus Vaccination: Yes Review of Systems - Review of Systems Notes: Constitutional: Negative for fever. HENT: Negative for sore throat. Eyes: Negative for visual changes. Cardiovascular: Negative for chest pain. Respiratory: Negative for shortness of breath. Gastrointestinal: Positive for abdominal cramping and constipation Genitourinary: Negative for dysuria. Musculoskeletal: Negative for back pain. Skin: Negative for rash. Neurological: Negative for headaches, weakness or numbness. 10 point ROS negative except as marked above and in HPI. Physical Exam - Vital signs Vitals: Temp Pulse Resp BP Pulse Ox 98.0 F 72 19 139/84 H 98 02/28/17 20:20 02/28/17 20:20 02/28/17 20:20 02/28/17 20:20 02/28/17 20:20 Interpretation: Normal Notes: PHYSICAL EXAMINATION: GENERAL: Well-appearing, well-nourished and in no acute distress. HEAD: Atraumatic, normocephalic. EYES: Pupils equal round and reactive to light, extraocular movements intact, sclera anicteric, conjunctiva are normal. ENT: nares patent, oropharynx clear without exudates. Moist mucous membranes. NECK: Normal range of motion, supple without lymphadenopathy LUNGS: Breath sounds clear to auscultation bilaterally and equal. No wheezes rales or rhonchi. HEART: Regular rate and rhythm without murmurs ABDOMEN: Soft, nontender, normoactive bowel sounds. No guarding, no rebound. No masses appreciated. EXTREMITIES: Normal range of motion, no pitting or edema. No cyanosis. NEUROLOGICAL: No focal neurological deficits. Moves all extremities spontaneously and on command. PSYCH: Normal mood, normal affect. SKIN: Warm, Dry, normal turgor, no rashes or lesions noted. Course - Re-evaluation Re-evalutation: 02/28/17 18:55 Patient presents complaining of inability to have a bowel movement for the past 3 days. Patient has no prior history of abdominal surgeries, no appreciable hernia on exam and no focal abdominal tenderness. Denies any significant abdominal pain and describes it more as cramping and a feeling of rectal heaviness like he needs to have a bowel movement. Patient was using 20 mg of oxycodone daily up into the last 5 days for chronic pain. Suspect that this likely contributed to his constipation. Patient does not have any symptoms to suggest an acute bowel obstruction as he has not had any vomiting, is to continue to tolerate oral intake, continues to pass flatus. I do not believe any imaging or labs are indicated at this time given patient's clinical history and examination. Will proceed with an enema and lactulose and reassess after bowel movement. 02/28/17 20:10 Patient has had complete resolution of his abdominal pain after having a large bowel movement. At this time will discharge with return precautions and follow- up recommendations. Verbal discharge instructions given a the bedside and opportunity for questions given. Medication warnings reviewed. Patient is in agreement with this plan and has verbalized understanding of return precautions and the need for primary care follow-up in the next 24-72 hours. - Vital Signs Vital signs: Temp Pulse Resp BP Pulse Ox 98.0 F 72 19 139/84 H 98 02/28/17 20:20 02/28/17 20:20 02/28/17 20:20 02/28/17 20:20 02/28/17 20:20 Discharge - Discharge Clinical Impression: Constipation Qualifiers: Constipation type: unspecified constipation type Qualified Code(s): K59.00 - Constipation, unspecified Condition: Good Disposition: HOME, SELF-CARE Additional Instructions: For your constipation: You should take 8 caps of MiraLAX and placed in 1 liter of Gatorade. Drink one half of the solution and wait 4 hours. If you do not have a bowel movement take the remaining half of the solution. Return if you have any symptoms that are worrisome to you including worsening abdominal pain, vomiting, fever, or any other symptoms that may concern you.
[2017-02-28 20:47] VITALS: BP 139/84
== END 2017-02-28 20:20 | disposition home or self-care (01) ==
LOC: ER 17:01
DX: K59.00 Constipation, unspecified (principal); R10.9 Unspecified abdominal pain; R11.0 Nausea; Z88.6 Allergy status to analgesic agent; Z88.2 Allergy status to sulfonamides; F17.200 Nicotine dependence, unspecified, uncomplicated; I48.91 Unspecified atrial fibrillation; E78.00 Pure hypercholesterolemia, unspecified; I10 Essential (primary) hypertension; E03.9 Hypothyroidism, unspecified; Z86.14 Personal history of Methicillin resistant Staphylococcus aureus infection
CPT/HCPCS: 99283; J3490 ×2

== ENCOUNTER 2017-07-16 09:19 | Emergency (ER) | payer SELFPAY ==
[2017-07-16] MEDS ORDERED: METOCLOPRAMIDE HCL INJ/PF 10 MG/2 ML SDV ONE (09:30)
[2017-07-16] MEDS ORDERED: DIPHENHYDRAMINE HCL 50 MG/ML VIAL ONE (09:30)
[2017-07-16] MEDS ORDERED: MORPHINE SULFATE 10 MG/ML INJ ONE (09:31)
[2017-07-16] MEDS ORDERED: DIPHENHYDRAMINE HCL 50 MG/ML VIAL IV ONE (09:35)
[2017-07-16] MEDS ORDERED: METOCLOPRAMIDE HCL INJ/PF 10 MG/2 ML SDV IV ONE (09:35)
[2017-07-16] MEDS ORDERED: MORPHINE SULFATE 10 MG/ML INJ IV PRN ×4 (09:36→14:07)
--- NOTE | 2017-07-16 09:41 | ER Document Report ---
ED General - General Stated Complaint: HEADACHE Time Seen by Provider: 07/16/17 09:34 Mode of Arrival: Ambulatory Information source: Patient Notes: This is a 36-year-old man with a history of atrial fibrillation, Marfan syndrome and arthritis. The patient states that he was usual state of health until this morning when he awoke with palpitations. Patient states he gets atrial fibrillation with palpitations and is normally able to Valsalva himself back to normal sinus rhythm. When he had the palpitations this morning, he states he forced Valsalva by straining and coughing and states that his palpitations did stop. However, he started having a headache after that. He presents with a severe headache which is in the soft occipital area down his neck. Patient states she has had headaches this severe in the past and has been told that he has had tension headaches. He denies any photophobia. He denies any nausea or vomiting. TRAVEL OUTSIDE OF THE [place] IN LAST 30 DAYS: No - HPI Onset: Just prior to arrival Onset/Duration: Sudden Quality of pain: Dull Severity: Severe Pain Level: 5 Associated symptoms: denies: Chills, Fever, Shortness of breath Exacerbated by: Coughing Relieved by: Denies Similar symptoms previously: Yes Recently seen / treated by doctor: No - Related Data Allergies/Adverse Reactions: hydrocodone [Hydrocodone] Allergy (Severe, Verified 02/28/17 17:04) Anaphylaxis Sulfa (Sulfonamide Antibiotics) Adverse Reaction (Severe, Verified 02/28/17 17: 04) hydromorphone HCl [From Dilaudid] Adverse Reaction (Intermediate, Verified 02/28 17:04) Past Medical History - General Information source: Patient - Social History Smoking Status: Unknown if Ever Smoked Chew tobacco use (# tins/day): No Smoking Education Provided: No Frequency of alcohol use: None Drug Abuse: None Lives with: Family Family History: Reviewed & Not Pertinent Patient has suicidal ideation: No Patient has homicidal ideation: No - Past Medical History Cardiac Medical History: Reports: Hx Atrial Fibrillation, Hx Heart Attack - x2 Dr. Mirza was dr on last hrt attack, Hx Hypercholesterolemia, Hx Hypertension Endocrine Medical History: Reports: Hx Hypothyroidism Renal/ Medical History: Denies: Hx Peritoneal Dialysis Musculoskeltal Medical History: Reports Hx Arthritis Skin Medical History: Reports Hx MRSA Infectious Medical History: Reports: Hx MRSA Past Surgical History: Reports: Hx Orthopedic Surgery - Tendon repair on L thumb , Hx Thyroid Surgery - Thyroidectomy - Immunizations Hx Diphtheria, Pertussis, Tetanus Vaccination: Yes Review of Systems - Review of Systems Constitutional: denies: Chills, Fever EENT: No symptoms reported Cardiovascular: No symptoms reported Respiratory: No symptoms reported Gastrointestinal: No symptoms reported Genitourinary: No symptoms reported Male Genitourinary: No symptoms reported Musculoskeletal: See HPI Skin: No symptoms reported Hematologic/Lymphatic: No symptoms reported Neurological/Psychological: See HPI Physical Exam - Vital signs Vitals: Temp Pulse Resp BP Pulse Ox 97.6 F 79 21 H 149/105 H 100 07/16/17 09:19 07/16/17 09:19 07/16/17 09:19 07/16/17 09:19 07/16/17 09:19 Notes: Physical exam: GENERAL: 36-year-old man, alert and oriented 3, appears in distress complaining of a headache. HEAD: Atraumatic, normocephalic. EYES: Pupils equal round and reactive to light, extraocular movements intact, sclera anicteric, conjunctiva are normal. ENT: TMs normal, nares patent, oropharynx clear without exudates. Moist mucous membranes. NECK: Normal range of motion, supple without obvious mass. No bruits are appreciated. LUNGS: Breath sounds clear to auscultation bilaterally and equal. No wheezes rales or rhonchi. HEART: Regular rate and rhythm without murmurs, rubs or gallops. ABDOMEN: Soft, normoactive bowel sounds. No tenderness to palpation. No guarding, no rebound. No masses appreciated. EXTREMITIES: Normal range of motion, no pitting or edema. No clubbing or cyanosis. NEUROLOGICAL: Cranial nerves II through XII grossly intact. As mentioned above , his neck is supple. There is no Brudzinski's or Kernig's. He does not have photophobia. His speech is normal and he is moving all extremities. His motor and sensory exam appears to be intact. PSYCH: Normal mood, normal affect. SKIN: Warm, Dry, normal turgor, no rashes or lesions noted. Course - Re-evaluation Re-evalutation: 07/16/17 15:40 Note: Patient's CT, CTA of the head and neck are normal. Patient does feel better after pain medicines. His white count is normal and is been afebrile. There is no suspicion for meningitis. Patient does state he has experienced a headache like this in the past and has seen a neurologist in [place] and had gotten relief with a muscle relaxer and Stadol in the past. I did discuss with him that the next step would be spinal tap if is the worst headache of his life , but he assures me that this is not the worst that he has ever had. Additionally, the head CT initially was performed within 6 hours which enhances the sensitivity. Furthermore, the CT angiogram of the head and neck shows no evidence of dissection or aneurysm. Based upon all these factors, and the patient preference, we decided to not do the spinal tap today and treat symptomatically. I have advised him to return tomorrow (I am working) if his symptoms are worse. - Vital Signs Vital signs: Temp Pulse Resp BP Pulse Ox 98.2 F 57 L 19 118/84 97 07/16/17 16:25 07/16/17 16:25 07/16/17 16:25 07/16/17 16:25 07/16/17 16:25 - Laboratory Result Diagrams: 07/16/17 09:30 07/16/17 09:30 Laboratory results interpreted by me: 07/16/17 09:30 Chloride 108 H Carbon Dioxide 21 L Creatine Kinase 33 L - Diagnostic Test Radiology reviewed: Image reviewed, Reports reviewed - CT of the head, CTA of the head, CTA of the neck showed no acute vascular pathology. - EKG Interpretation by Me Rate: Normal Rhythm: NSR - EKG shows normal sinus rhythm with a ventricular rate of 77, no acute ST-T wave changes. Discharge - Discharge Clinical Impression: Headache Condition: Stable Disposition: HOME, SELF-CARE Additional Instructions: Thank you for choosing [facility] for your care. The examination and treatment you have received in the Emergency Department today has been rendered on an emergency basis only and is not intended to be a substitute for complete medical care. You should contact your follow-up physician as it is important that he or she examine you for any new or remaining problems. If given a copy of any lab tests or radiology reports, please bring them with you when you see your physician. If your problem worsens or new symptoms appear and you are unable to arrange prompt follow-up care, return to the Emergency Department. Specific signs to look out for: Worsening headache, fever (temperature greater than 100.4), light bothering the eyes, worsening neck pain or any concerns or getting worse per Any other instructions: Use the Stadol spray as prescribed. Continue with your muscle relaxer. Take Celebrex as needed Can you other medicines. Prescriptions: Butorphanol Tartrate 1 spray NS DAILY PRN #1 bottle PRN Reason: Referrals: [facility] [Provider Group] - Follow up as needed (This is the number of the free clinic affiliated with the [facility].)
[2017-07-16 09:45] LABS: ABSOLUTE BASOPHILS # (AUTO) 0.1 10^3/uL (0.0-0.2); ABSOLUTE LYMPHOCYTES (AUTO) 2.6 10^3/uL (0.5-4.7); ABSOLUTE MONOCYTES (AUTO) 0.8 10^3/uL (0.1-1.4); ABSOLUTE NEUT (AUTO) 5.3 10^3/uL (1.7-8.2); BASOPHILS % (AUTO) 1.1 % (0-2); EOSINOPHILS % (AUTO) 0.5 % (0-6); HEMATOCRIT 45.3 % (37.9-51.0); HEMOGLOBIN 15.5 g/dL (13.5-17.0); LYMPHOCYTES % (AUTO) 29.6 % (13-45); MEAN CORPUSCULAR HEMOGLOBIN 31.4 pg (27.0-33.4); MEAN CORPUSCULAR HGB CONC 34.2 g/dL (32.0-36.0); MEAN CORPUSCULAR VOLUME 92 fl (80-97); PLATELET COUNT 241 10^3/uL (150-450); RED BLOOD COUNT 4.93 10^6/uL (4.35-5.55); RED CELL DISTRIBUTION WIDTH 13.5 % (11.5-14.0); SEGMENTED NEUTROPHILS % (AUTO) 59.8 % (42-78); TOTAL CELLS COUNTED % (AUTO) 100 %; WHITE BLOOD COUNT 8.8 10^3/uL (4.0-10.5)
[2017-07-16 10:00] LABS: ALANINE AMINOTRANSFERASE 51 U/L (21-72); ALBUMIN 4.3 g/dL (3.5-5.0); ALKALINE PHOSPHATASE 86 U/L (38-126); ANION GAP 13 (5-19); ASPARTATE AMINO TRANSFERASE 28 U/L (17-59); BILIRUBIN,DIRECT 0.3 mg/dL (0.0-0.4); BILIRUBIN,TOTAL 0.4 mg/dL (0.2-1.3); BLOOD UREA NITROGEN 12 mg/dL (7-20); CALCIUM 10.2 mg/dL (8.4-10.2); CARBON DIOXIDE 21 mmol/L (22-30); CHLORIDE 108 mmol/L (98-107); CREATINE KINASE 33 U/L (55-170); GLUCOSE 95 mg/dL (75-110); INTERNATIONAL RATION (INR) 0.89; POTASSIUM 4.2 mmol/L (3.6-5.0); PROTHROMBIN TIME 12.6 SEC (11.4-15.4); SODIUM 142.3 mmol/L (137-145); TOTAL PROTEIN 7.2 g/dL (6.3-8.2)
--- NOTE | 2017-07-16 10:02 | RADIOLOGY REPORT (SQ) ---
EXAM DESCRIPTION: CT HEAD WITHOUT COMPLETED DATE/TIME: 07/16/2017 9:54 am REASON FOR STUDY: headache-Marfan's syndrome COMPARISON: 02/01/2009 TECHNIQUE: Axial images acquired through the brain without intravenous contrast. Images reviewed wi th bone, brain and subdural windows. Images stored on PACS. LIMITATIONS: None. FINDINGS: VENTRICLES: Normal size and contour. CEREBRUM: No masses. No hemorrhage. No midline shift. Normal bowman/white matter differentiation. N o evidence for acute infarction. CEREBELLUM: No masses. No hemorrhage. No alteration of density. No evidence for acute infarction. EXTRAAXIAL SPACES: Stable small arachnoid cyst posterior to the right cerebellar hemisphere. No flu id collections. No significant masses. ORBITS AND GLOBE: No intra- or extraconal masses. Normal contour of globe without masses. CALVARIUM: No fracture. PARANASAL SINUSES: Small right maxillary sinus mucous retention cysts or polyps. Otherwise clear. SOFT TISSUES: No mass or hematoma. OTHER: No other significant finding. IMPRESSION: NO ACUTE INTRACRANIAL PROCESS. NO SIGNIFICANT CHANGE FROM PRIOR STUDY. COMMENT: WAS EXAM PERFORMED WITHIN 24 HOURS UPON ARRIVAL TO FACILITY? Yes. TECHNICAL DOCUMENTATION: JOB ID: [id number]
[2017-07-16 10:12] LABS: CREATINE KINASE MB 0.25 ng/mL (<4.55)
[2017-07-16 10:16] LABS: TROPONIN I < 0.012 ng/mL
--- NOTE | 2017-07-16 12:45 | EKG REPORT ---
SEVERITY:- NORMAL ECG - SINUS RHYTHM : Confirmed by: Nina Riddle MD 16-Jul-2017 12:45:17
--- NOTE | 2017-07-16 13:17 | RADIOLOGY REPORT (SQ) ---
EXAM DESCRIPTION: CTA NECK COMPLETED DATE/TIME: 07/16/2017 1:02 pm REASON FOR STUDY: severe parmar/neck pain COMPARISON: None. TECHNIQUE: Axial dynamic scanning technique with dynamic contrast enhancement through the extra-aircraft machinist helper nial carotid and vertebral arteries. Multiplanar reconstruction. 3-D MIPS and Volume-rendered imag es acquired at the workstation and saved to PACS. Images are reviewed in soft tissue, bone, lung w indows. All CT scanners at this facility use dose modulation, iterative reconstruction, and/or weight based d osing when appropriate to reduce radiation dose to as low as reasonably achievable (ALARA). [facility]: Dose Right [facility]: CareDose [facility]: Dose Right [facility]: Teradose 4D [facility]: Adjacent Applications CONTRAST TYPE AND DOSE: contrast/concentration: Isovue 370.00 mg/ml; Total Contrast Delivered: 70.0 ml; Total Saline Delivered: 75.0 ml RENAL FUNCTION: None required. The patient is less than 50 years old. LIMITATIONS: None. FINDINGS: AORTIC ARCH: Normal three-vessel origin. Bilateral subclavian arteries are patent. No d issection. RIGHT CAROTIDS: Patent common, internal and external carotid arteries without suggestion of significa nt stenosis or irregular plaque. No dissection. RIGHT VERTEBRAL: Patent. No dissection. LEFT CAROTIDS: Patent common, internal and external carotid arteries without suggestion of significan t stenosis or irregular plaque. No dissection. LEFT VERTEBRAL: Patent. No dissection. OTHER: No other significant finding. OTHER: 3-D reconstructions confirm findings. IMPRESSION: NORMAL CTA OF THE EXTRA-CRANIAL CAROTID AND VERTEBRAL ARTERIES. COMMENT: Quality ID #[id number]: Measurements of distal internal carotid diameter were used as the denomina tor for stenosis measurement. TECHNICAL DOCUMENTATION: JOB ID: [id number] Quality ID # 436: Final reports with documentation of one or more dose reduction techniques (e.g., Au tomated exposure control, adjustment of the mA and/or kV according to patient size, use of iterative reconstruction technique) 2010 [employer]- All Rights Reserved
--- NOTE | 2017-07-16 13:17 | RADIOLOGY REPORT (SQ) ---
EXAM DESCRIPTION: CTA HEAD COMPLETED DATE/TIME: 07/16/2017 1:02 pm REASON FOR STUDY: severe parmar/neck pain COMPARISON: None. TECHNIQUE: Post IV contrast scanning, thin section axial imaging through the brain to evaluate the a rterial structures. Source and MIP images are saved and reviewed on PACS. Advanced 3D imaging as volume-rendering, MIPs, SSD performed? yes All CT scanners at this facility use dose modulation, iterative reconstruction, and/or weight based d osing when appropriate to reduce radiation dose to as low as reasonably achievable (ALARA). [facility]: Dose Right [facility]: CareDose [facility]: Dose Right [facility]: Teradose 4D [facility]: [place] CONTRAST TYPE AND DOSE: 70.3 mL Isovue 370- low osmolar. RENAL FUNCTION: None required. The patient is less than 50 years old. LIMITATIONS: None. FINDINGS: [place]: The anterior, middle, posterior cerebral arteries are all patent. No ev idence of aneurysm or focal stenosis. POSTERIOR CIRCULATION: The distal vertebral arteries are patent as is the basilar artery. No aneurysm . BRAIN: No gross enhancing lesions as visualized. BONES: Intact as visualized. SINUSES: No fluid or mucosal thickening. OTHER: No other significant finding. IMPRESSION: NO CTA EVIDENCE OF STENOSIS, DISSECTION, OR ANEURYSM OF THE [place] OF [place]. TECHNICAL DOCUMENTATION: JOB ID: [id number] Quality ID # [id number]: Final reports with documentation of one or more dose reduction techniques (e.g., Au tomated exposure control, adjustment of the mA and/or kV according to patient size, use of iterative reconstruction technique) 2010 [employer]- All Rights Reserved
[2017-07-16 16:28] VITALS: BP 118/84
== END 2017-07-16 16:27 | disposition home or self-care (01) ==
LOC: ER 09:19
DX: R51 Headache (principal); I48.91 Unspecified atrial fibrillation; Q87.40 Marfan syndrome, unspecified; R00.2 Palpitations
CPT/HCPCS: 93005; 96376; 99285; 96374; 96375; 36415; 82553; 82550; 85025; 85610; 80053; 84484; 70450; 70496; 70498; 93010; J1200; J2765; J2270

== ENCOUNTER 2019-04-09 18:35 | Emergency (ER) | payer MEDICARE ==
--- NOTE | 2019-04-09 18:55 | ER Document Report ---
ED Medical Screen (RME) - General Chief Complaint: Abdominal Pain Stated Complaint: ABDOMINAL PAIN Time Seen by Provider: 04/09/19 18:51 Mode of Arrival: Wheelchair Information source: Patient Notes: 38-year-old male with history of kidney stones presents emergency department with complaints of right-sided pain. Patient still has his gallbladder. Reports he has had it for the past couple weeks but is getting worse today. Complains of nausea but declines antinausea medicine. Denies pain with void. Denies urinary frequency. Denies hematuria. Reports he has cut out all soda and only drinks water. No complaints of fever vomiting. Right upper quad tender to palpate right flank tender to palpate I have greeted and performed a rapid initial assessment of this patient. A comprehensive ED assessment and evaluation of the patient, analysis of test results and completion of the medical decision making process will be conducted by additional ED providers. Dictation of this chart was performed using voice recognition software; therefore, there may be some unintended grammatical errors. TRAVEL OUTSIDE OF THE [place] IN LAST 30 DAYS: No - Related Data Allergies/Adverse Reactions: hydrocodone [Hydrocodone] Allergy (Severe, Verified 04/09/19 18:52) Anaphylaxis Sulfa (Sulfonamide Antibiotics) Adverse Reaction (Severe, Verified 04/09/19 18:52) hydromorphone HCl [From Dilaudid] Adverse Reaction (Intermediate, Verified 04/09/19 18:52) Past Medical History - Past Medical History Cardiac Medical History: Reports: Hx Atrial Fibrillation, Hx Heart Attack - x2 Dr. Mirza was dr on last hrt attack, Hx Hypercholesterolemia, Hx Hypertension Endocrine Medical History: Reports: Hx Hypothyroidism Renal/ Medical History: Denies: Hx Peritoneal Dialysis Musculoskeltal Medical History: Reports Hx Arthritis Skin Medical History: Reports Hx MRSA Infectious Medical History: Reports: Hx MRSA Past Surgical History: Reports: Hx Orthopedic Surgery - Tendon repair on L thumb, Hx Thyroid Surgery - Thyroidectomy - Immunizations Hx Diphtheria, Pertussis, Tetanus Vaccination: Yes Physical Exam - Vital signs Vitals: Temp Pulse Resp BP Pulse Ox 98.2 F 62 18 150/91 H 100 04/09/19 18:42 04/09/19 18:42 04/09/19 18:42 04/09/19 18:42 04/09/19 18:42 Course - Vital Signs Vital signs: Temp Pulse Resp BP Pulse Ox 98.2 F 62 18 150/91 H 100 04/09/19 18:42 04/09/19 18:42 04/09/19 18:42 04/09/19 18:42 04/09/19 18:42
--- NOTE | 2019-04-09 19:47 | RADIOLOGY REPORT (SQ) ---
EXAM DESCRIPTION: U/S ABDOMEN LIMITED W/O DOP COMPLETED DATE/TIME: 04/09/2019 7:38 pm REASON FOR STUDY: RIGHT SIDE PAIN COMPARISON: None. TECHNIQUE: Dynamic and static grayscale images acquired of the abdomen and recorded on PACS. Additio nal selected color Doppler and spectral images recorded. Note: Exam does not meet criteria for a complete doppler/duplex scan LIMITATIONS: Study limited due to acoustical interference from fat or from air in the bowel. FINDINGS: PANCREAS: Obscured. LIVER: Echotexture is coarse with increased echogenicity consistent with fatty infiltration. LIVER VASCULATURE: Normal directional flow of the main portal vein and hepatic veins. GALLBLADDER: No stones. Normal wall thickness. No pericholecystic fluid. ULTRASOUND-DETECTED MONTILLA'S SIGN: Negative. INTRAHEPATIC DUCTS AND COMMON DUCT: CBD and intrahepatic ducts normal caliber. No filling defects. INFERIOR VENA CAVA: Normal flow. AORTA: No aneurysm. RIGHT KIDNEY: Normal size. Normal echogenicity. No solid or suspicious masses. No hydronephrosis. No calcifications. PERITONEAL AND PLEURAL SPACES: No ascites or effusions. OTHER: No other significant finding. IMPRESSION: FATTY INFILTRATION OF THE LIVER. NO OTHER SIGNIFICANT FINDING IN THE VISUALIZED ABDOMEN. TECHNICAL DOCUMENTATION: JOB ID: [id number] [employer]- All Rights Reserved Reading location - IP/workstation name: [email or web address]
[2019-04-09] MEDS ORDERED: PROCHLORPERAZINE EDISYLATE INJ 10 MG/2 ML VIAL IV ONE (20:07)
[2019-04-09] MEDS ORDERED: DIPHENHYDRAMINE HCL 50 MG/ML VIAL IV ONE (20:07)
[2019-04-09] MEDS ORDERED: KETOROLAC TROMETHAMINE INJ/PF 30 MG/1 ML SDV IV ONE (20:07)
--- NOTE | 2019-04-09 20:11 | ER Document Report ---
ED General - General Chief Complaint: Flank Pain Stated Complaint: ABDOMINAL PAIN Time Seen by Provider: 04/09/19 18:51 Primary Care Provider: JENNA STEVENSON PA-C [Primary Care Provider] - Follow up as needed Mode of Arrival: Wheelchair TRAVEL OUTSIDE OF THE [place] IN LAST 30 DAYS: No - HPI Notes: 38-year-old male with stated history of prior renal stone presents with severe right-sided flank pain. Patient was evaluated by the [facility] provider prior to my evaluation. Studies / interventions have been ordered by this provider and may still be pending. Patient describes sudden onset this afternoon her right flank pain rating around his right mid quadrant. Sharp and severe, cannot get comfortable. Moderate intensity, radiates as described. Nausea and vomiting, no hematuria. Some dysuria. No worse with motion. No other modifying factors, no other associated symptoms, no other provocative or palliative factors. - Related Data Allergies/Adverse Reactions: hydrocodone [Hydrocodone] Allergy (Severe, Verified 04/09/19 18:52) Anaphylaxis Sulfa (Sulfonamide Antibiotics) Adverse Reaction (Severe, Verified 04/09/19 18:52) hydromorphone HCl [From Dilaudid] Adverse Reaction (Intermediate, Verified 0 04/09/19 18:52) Past Medical History - General Information source: Patient - Social History Smoking Status: Current Every Day Smoker Chew tobacco use (# tins/day): No Frequency of alcohol use: Rare Drug Abuse: None Family History: Reviewed & Not Pertinent Patient has suicidal ideation: No Patient has homicidal ideation: No - Past Medical History Cardiac Medical History: Reports: Hx Atrial Fibrillation, Hx Heart Attack - x2 Dr. Mirza was dr on last hrt attack, Hx Hypercholesterolemia, Hx Hypertension Endocrine Medical History: Reports: Hx Hypothyroidism Renal/ Medical History: Denies: Hx Peritoneal Dialysis Musculoskeletal Medical History: Reports Hx Arthritis Skin Medical History: Reports Hx MRSA Infectious Medical History: Reports: Hx MRSA Past Surgical History: Reports: Hx Orthopedic Surgery - Tendon repair on L thumb, Hx Thyroid Surgery - Thyroidectomy - Immunizations Hx Diphtheria, Pertussis, Tetanus Vaccination: Yes Review of Systems - Review of Systems Notes: Review of systems as in the history of present illness, otherwise negative x 10 systems. Physical Exam - Vital signs Vitals: Temp Pulse Resp BP Pulse Ox 98.2 F 62 18 150/91 H 100 04/09/19 18:42 04/09/19 18:42 04/09/19 18:42 04/09/19 18:42 04/09/19 18:42 - Notes Notes: General: Well developed . HEENT: Normocephalic, atraumatic. Pupils equal round reactive to light. No JVD. Chest: No trauma. Respiratory: Good air exchange, normal excursion. Cardiac: Regular rhythm. No murmurs or gallops. Abdomen: Soft, benign. Nondistended. Nontender. No significant tenderness on distracted examination Back: No asymmetry or gross abnormality. Right right CVAT Motor: Grossly normal power and tone. Neurologic: Alert, nonfocal. Cranial nerves II-12 are intact. Sensation intact. Vascular: Well perfused. Normal peripheral pulses. Skin: No petechiae or purpura. Course - Re-evaluation Re-evalutation: 04/09/19 20:10 38-year-old male with the after mentioned symptoms, strongly suspicious for right-sided renal colic. Less likely biliary colic. Doubt appendicitis. Plan proceed with labs, UA, IV fluids, IV antiemetics, IV opiate analgesics, serial exams and reassess. 04/09/19 23:25 Labs reviewed, CBC shows significant leukocytosis. Chemistry unremarkable. Urine is substantially delayed not available at the time CT imaging. Given his critical right lower quadrant pain and elevated leukocytosis, consideration is given appendicitis. Patient underwent CT imaging, this shows a 3 mm ureteral stone. Patient had marked improvement with addition of morphine. Urine is finally returned, shows no evidence of acute infection. He is discharged home with a prescription for analgesics, antiemetics and urology follow-up. - Vital Signs Vital signs: Temp Pulse Resp BP Pulse Ox 98.2 F 62 18 150/91 H 100 04/09/19 18:42 04/09/19 18:42 04/09/19 18:42 04/09/19 18:42 04/09/19 18:42 - Laboratory Result Diagrams: 04/09/19 20:17 04/09/19 20:17 Laboratory results interpreted by me: 04/09/19 04/09/19 04/09/19 20:17 20:17 22:07 WBC 18.0 H Absolute Neuts (auto) 13.7 H Absolute Monos (auto) 1.5 H AST 16 L Urine Blood MODERATE H Urine Urobilinogen 2.0 H Discharge - Discharge Clinical Impression: Renal colic on right side Condition: Stable Disposition: HOME, SELF-CARE Instructions: Kidney Stone ([facility]) Prescriptions: Oxycodone HCl/Acetaminophen [Percocet 5-325 mg Tablet] 1 - 2 tab PO Q4H PRN #15 tablet PRN Reason: Ondansetron [Zofran Odt 4 mg Tablet] 1 - 2 tab PO Q4H PRN #15 tab.rapdis PRN Reason: For Nausea/Vomiting Referrals: JENNA STEVENSON PA-C [Primary Care Provider] - Follow up as needed
[2019-04-09 20:24] LABS: ABSOLUTE BASOPHILS # (AUTO) 0.1 10^3/uL (0.0-0.2); ABSOLUTE EOSINOPHILS # (AUTO) 0.1 10^3/uL (0.0-0.6); ABSOLUTE LYMPHOCYTES (AUTO) 2.6 10^3/uL (0.5-4.7); ABSOLUTE MONOCYTES (AUTO) 1.5 10^3/uL (0.1-1.4); ABSOLUTE NEUT (AUTO) 13.7 10^3/uL (1.7-8.2); BASOPHILS % (AUTO) 0.6 % (0-2); EOSINOPHILS % (AUTO) 0.6 % (0-6); HEMATOCRIT 45.3 % (37.9-51.0); HEMOGLOBIN 15.2 g/dL (13.5-17.0); LYMPHOCYTES % (AUTO) 14.4 % (13-45); MEAN CORPUSCULAR HEMOGLOBIN 31.1 pg (27.0-33.4); MEAN CORPUSCULAR HGB CONC 33.7 g/dL (32.0-36.0); MEAN CORPUSCULAR VOLUME 93 fl (80-97); MONOCYTES % (AUTO) 8.2 % (3-13); PLATELET COUNT 242 10^3/uL (150-450); RED CELL DISTRIBUTION WIDTH 13.4 % (11.5-14.0); SEGMENTED NEUTROPHILS % (AUTO) 76.2 % (42-78); TOTAL CELLS COUNTED % (AUTO) 100 %
[2019-04-09 20:46] LABS: ALBUMIN 4.4 g/dL (3.5-5.0); ALKALINE PHOSPHATASE 116 U/L (38-126); ANION GAP 8 (5-19); ASPARTATE AMINO TRANSFERASE 16 U/L (17-59); BILIRUBIN,DIRECT 0.1 mg/dL (0.0-0.4); BILIRUBIN,TOTAL 0.3 mg/dL (0.2-1.3); BLOOD UREA NITROGEN 10 mg/dL (7-20); CALCIUM 9.8 mg/dL (8.4-10.2); CARBON DIOXIDE 27 mmol/L (22-30); CHLORIDE 104 mmol/L (98-107); GLUCOSE 89 mg/dL (75-110); POTASSIUM 4.4 mmol/L (3.6-5.0); TOTAL PROTEIN 7.6 g/dL (6.3-8.2)
[2019-04-09] MEDS ORDERED: MORPHINE SULFATE 10 MG/ML INJ IV ONE (21:02)
--- NOTE | 2019-04-09 21:42 | RADIOLOGY REPORT (SQ) ---
EXAM DESCRIPTION: CT ABDOMEN PELVIS WITH IV CONTRAST COMPLETED DATE/TME: 04/09/2019 21:01 CLINICAL HISTORY: 38 years, Male, Right flank and RLQ pain, eval stone vs appy Findings: Visualized lung bases are within normal limits. Liver demonstrates 1.5 cm cyst. Spleen, pancreas, gallbladder, adrenal glands are within normal limits. No biliary dilatation. Mild right hydroureteronephrosis with ureter dilated distally, dated 3 mm calculus. Bladder is unremarkable. Mild right perinephric stranding. No dilated loops of bowel to suggest obstruction. Mild amount of stool in the colon. The appendix is normal. No free fluid or free air. No abdominal or pelvic lymphadenopathy. Abdominal aorta is within normal limits. IMPRESSION: 3 mm right distal ureteral calculus with mild right hydronephrosis.
[2019-04-09 22:35] LABS: APPEARANCE,URINE CLEAR; BILIRUBIN,URINE NEGATIVE (NEGATIVE); COLOR,URINE YELLOW; GLUCOSE, URINE NEGATIVE (NEGATIVE); KETONES,URINE NEGATIVE (NEGATIVE); LEUKOCYTE ESTERASE,URINE NEGATIVE (NEGATIVE); NITRITE,URINE NEGATIVE (NEGATIVE); PROTEIN,URINE NEGATIVE (NEGATIVE); URINE SPECIFIC GRAVITY 1.028
[2019-04-09 23:38] VITALS: BP 132/84
== END 2019-04-09 23:38 | disposition home or self-care (01) ==
LOC: ER 18:35
DX: N13.2 Hydronephrosis with renal and ureteral calculous obstruction (principal); R30.0 Dysuria; R10.31 Right lower quadrant pain; R10.9 Unspecified abdominal pain; D72.829 Elevated white blood cell count, unspecified; F17.200 Nicotine dependence, unspecified, uncomplicated; I10 Essential (primary) hypertension; Z88.5 Allergy status to narcotic agent
CPT/HCPCS: 99284; 96374; 96375; 36415; 83690; 85025; 80053; 81001; 76705; 74177; J1200; J1885; J2270; J0780

== ENCOUNTER 2019-04-29 13:27 | Emergency (ER) | payer MEDICARE ==
[2019-04-29] MEDS ORDERED: KETOROLAC TROMETHAMINE INJ/PF 30 MG/1 ML SDV IV ONE (14:37)
[2019-04-29] MEDS ORDERED: ACETAMINOPHEN 325 MG TABLET PO ONE (14:37)
--- NOTE | 2019-04-29 14:39 | ER Document Report ---
ED Medical Screen (RME) - General Chief Complaint: Possible Kidney Stone Stated Complaint: RIGHT SIDE PAIN,VOMITING Time Seen by Provider: 04/29/19 14:12 Primary Care Provider: JENNA STEVENSON PA-C [Primary Care Provider] - Follow up as needed Notes: 38-year-old male with paroxysmal A. fib and history of nephro presents to the emergency department with chief complaint of right flank pain that radiates around to the right groin consistent with previous kidney stones. Patient states the pain got acutely worse last night. Complained of fever, chills, nausea, vomiting, denies hematuria Exam: Well-appearing in mild distress, right CVAT, regular cardiac rate and rhythm, lungs clear to auscultation in all [place] I have greeted and performed a rapid initial assessment of this patient. A comprehensive ED assessment and evaluation of the patient, analysis of test results and completion of medical decision making process will be conducted by an additional ED providers. TRAVEL OUTSIDE OF THE [place] IN LAST 30 DAYS: No - Related Data Allergies/Adverse Reactions: hydrocodone [Hydrocodone] Allergy (Severe, Verified 04/09/19 18:52) Anaphylaxis Sulfa (Sulfonamide Antibiotics) Adverse Reaction (Severe, Verified 04/09/19 18:52) hydromorphone HCl [From Dilaudid] Adverse Reaction (Intermediate, Verified 04/09/19 18:52) Past Medical History - Social History Frequency of alcohol use: Occasional Drug Abuse: None - Past Medical History Cardiac Medical History: Reports: Hx Atrial Fibrillation, Hx Heart Attack - x2 Dr. Mirza was dr on last hrt attack, Hx Hypercholesterolemia, Hx Hypertension Endocrine Medical History: Reports: Hx Hypothyroidism Renal/ Medical History: Denies: Hx Peritoneal Dialysis Musculoskeltal Medical History: Reports Hx Arthritis Skin Medical History: Reports Hx MRSA Infectious Medical History: Reports: Hx MRSA Past Surgical History: Reports: Hx Orthopedic Surgery - Tendon repair on L thumb, Hx Thyroid Surgery - Thyroidectomy - Immunizations Hx Diphtheria, Pertussis, Tetanus Vaccination: Yes Physical Exam - Vital signs Vitals: Temp Pulse Resp BP Pulse Ox 98.2 F 58 L 20 151/82 H 100 04/29/19 13:38 04/29/19 13:38 04/29/19 13:38 04/29/19 13:38 04/29/19 13:38 Course - Vital Signs Vital signs: Temp Pulse Resp BP Pulse Ox 98.2 F 58 L 20 151/82 H 100 04/29/19 13:38 04/29/19 13:38 04/29/19 13:38 04/29/19 13:38 04/29/19 13:38 Doctor's Discharge - Discharge Referrals: JENNA STEVENSON PA-C [Primary Care Provider] - Follow up as needed
[2019-04-29] MEDS: NORMAL SALINE 1000 ML 1,000 ML IV PRN ×2 (14:59→15:31)
[2019-04-29 15:18] LABS: APPEARANCE,URINE CLEAR; BILIRUBIN,URINE NEGATIVE (NEGATIVE); COLOR,URINE YELLOW; GLUCOSE, URINE NEGATIVE (NEGATIVE); KETONES,URINE 20 mg/dL (NEGATIVE); LEUKOCYTE ESTERASE,URINE NEGATIVE (NEGATIVE); NITRITE,URINE NEGATIVE (NEGATIVE); PROTEIN,URINE NEGATIVE (NEGATIVE); URINE SPECIFIC GRAVITY 1.019; UROBILINOGEN,URINE NEGATIVE mg/dL (<2.0)
[2019-04-29 15:19] LABS: ABSOLUTE LYMPHOCYTES (AUTO) 1.8 10^3/uL (0.5-4.7); ABSOLUTE MONOCYTES (AUTO) 1.1 10^3/uL (0.1-1.4); ABSOLUTE NEUT (AUTO) 11.8 10^3/uL (1.7-8.2); BASOPHILS % (AUTO) 0.3 % (0-2); EOSINOPHILS % (AUTO) 0.1 % (0-6); HEMATOCRIT 45.9 % (37.9-51.0); HEMOGLOBIN 15.6 g/dL (13.5-17.0); LYMPHOCYTES % (AUTO) 12.1 % (13-45); MEAN CORPUSCULAR HGB CONC 33.9 g/dL (32.0-36.0); MEAN CORPUSCULAR VOLUME 92 fl (80-97); MONOCYTES % (AUTO) 7.6 % (3-13); PLATELET COUNT 215 10^3/uL (150-450); RED BLOOD COUNT 5.01 10^6/uL (4.35-5.55); SEGMENTED NEUTROPHILS % (AUTO) 79.9 % (42-78); TOTAL CELLS COUNTED % (AUTO) 100 %; WHITE BLOOD COUNT 14.7 10^3/uL (4.0-10.5)
[2019-04-29] MEDS ORDERED: MORPHINE SULFATE 10 MG/ML INJ IV ONE ×2 (15:22→17:05)
--- NOTE | 2019-04-29 15:33 | ER Document Report ---
ED GI/ - General Chief Complaint: Possible Kidney Stone Stated Complaint: RIGHT SIDE PAIN,VOMITING Time Seen by Provider: 04/29/19 14:12 Primary Care Provider: JENNA STEVENSON PA-C [Primary Care Provider] - Follow up as needed Mode of Arrival: Ambulatory Information source: Patient TRAVEL OUTSIDE OF THE [place] IN LAST 30 DAYS: No - HPI Patient complains to provider of: Flank pain - pt. with h/o kidney stones here recently for similar pain. He states this pain started in the past 1-2 days in the R flank area. He has been having N/V - Related Data Allergies/Adverse Reactions: hydrocodone [Hydrocodone] Allergy (Severe, Verified 04/09/19 18:52) Anaphylaxis Sulfa (Sulfonamide Antibiotics) Adverse Reaction (Severe, Verified 04/09/19 18:52) hydromorphone HCl [From Dilaudid] Adverse Reaction (Intermediate, Verified 04/09/19 18:52) Past Medical History - General Information source: Patient - Social History Smoking Status: Current Every Day Smoker Frequency of alcohol use: Occasional Drug Abuse: None Family History: Reviewed & Not Pertinent Patient has suicidal ideation: No Patient has homicidal ideation: No - Past Medical History Cardiac Medical History: Reports: Hx Atrial Fibrillation, Hx Heart Attack - x2 Dr. Mirza was dr on last hrt attack, Hx Hypercholesterolemia, Hx Hypertension Endocrine Medical History: Reports: Hx Hypothyroidism Renal/ Medical History: Denies: Hx Peritoneal Dialysis Musculoskeletal Medical History: Reports Hx Arthritis Skin Medical History: Reports Hx MRSA Infectious Medical History: Reports: Hx MRSA Past Surgical History: Reports: Hx Orthopedic Surgery - Tendon repair on L thumb, Hx Thyroid Surgery - Thyroidectomy - Immunizations Hx Diphtheria, Pertussis, Tetanus Vaccination: Yes Review of Systems - Review of Systems Constitutional: No symptoms reported EENT: No symptoms reported Cardiovascular: No symptoms reported Respiratory: No symptoms reported Gastrointestinal: No symptoms reported Genitourinary: See HPI, Flank pain Musculoskeletal: No symptoms reported Neurological/Psychological: No symptoms reported -: Yes All other systems reviewed and negative Physical Exam - Vital signs Vitals: Temp Pulse Resp BP Pulse Ox 98.2 F 58 L 20 151/82 H 100 04/29/19 13:38 04/29/19 13:38 04/29/19 13:38 04/29/19 13:38 04/29/19 13:38 - General General appearance: Appears well In distress: Mild - HEENT Pharynx: Normal Neck: Normal - Respiratory Respiratory status: No respiratory distress Breath sounds: Normal - Cardiovascular Rhythm: Regular Heart sounds: Normal auscultation Murmur: No - Abdominal Inspection: Normal Bowel sounds: Normal Tenderness: Nontender - Back Back: Tender - min R CVAT - Extremities General upper extremity: Normal inspection General lower extremity: Normal inspection - Neurological Neuro grossly intact: Yes Cognition: Normal Orientation: AAOx4 Course - Re-evaluation Re-evalutation: 04/29/19 17:06 pt. feels much better after IV meds. I have told him to increase his fluids and take the pain meds and hopefully that stone will pass in the ensuing 24 hours. - Vital Signs Vital signs: Temp Pulse Resp BP Pulse Ox 97.9 F 70 16 108/60 100 04/29/19 16:32 04/29/19 16:32 04/29/19 16:32 04/29/19 16:32 04/29/19 16:32 - Laboratory Result Diagrams: 04/29/19 14:41 04/29/19 14:41 Laboratory results interpreted by me: 04/29/19 04/29/19 04/29/19 14:41 14:41 14:41 WBC 14.7 H Lymph % (Auto) 12.1 L Absolute Neuts (auto) 11.8 H Seg Neutrophils % 79.9 H Carbon Dioxide 21 L Creatinine 1.42 H Est GFR (MDRD) Non-Af 56 L Urine Ketones 20 H Urine Blood SMALL H - Diagnostic Test Radiology reviewed: Reports reviewed - 2 mm UVJ stone on the R Discharge - Discharge Clinical Impression: Renal colic on right side Condition: Stable Disposition: HOME, SELF-CARE Instructions: Pain Medication Injection ([facility]), Toradol Injection ([facility]) Additional Instructions: rest, increase fluid, take meds as prescribed, return if worse Prescriptions: Oxycodone HCl/Acetaminophen [Percocet 5-325 mg Tablet] 1 tab PO ASDIR PRN #15 tab PRN Reason: Referrals: JENNA STVEENSON PA-C [Primary Care Provider] - Follow up as needed
[2019-04-29 15:44] LABS: ALBUMIN 4.5 g/dL (3.5-5.0); ALKALINE PHOSPHATASE 125 U/L (38-126); ANION GAP 12 (5-19); ASPARTATE AMINO TRANSFERASE 18 U/L (17-59); BILIRUBIN,DIRECT 0.1 mg/dL (0.0-0.4); BILIRUBIN,TOTAL 0.6 mg/dL (0.2-1.3); BLOOD UREA NITROGEN 16 mg/dL (7-20); CALCIUM 9.9 mg/dL (8.4-10.2); CARBON DIOXIDE 21 mmol/L (22-30); CHLORIDE 107 mmol/L (98-107); GLUCOSE 101 mg/dL (75-110); POTASSIUM 3.8 mmol/L (3.6-5.0); TOTAL PROTEIN 7.8 g/dL (6.3-8.2)
--- NOTE | 2019-04-29 16:01 | RADIOLOGY REPORT (SQ) ---
EXAM DESCRIPTION: CT ABD/PELVIS NO ORAL OR IV COMPLETED DATE/TIME: 04/29/2019 3:49 pm REASON FOR STUDY: R flank pain COMPARISON: 04/09/2019 TECHNIQUE: CT scan of the abdomen and pelvis performed without intravenous or oral contrast. Images reviewed with lung, soft tissue, and bone windows. Reconstructed coronal and sagittal MPR images revi ewed. All images stored on PACS. All CT scanners at this facility use dose modulation, iterative reconstruction, and/or weight based d osing when appropriate to reduce radiation dose to as low as reasonably achievable (ALARA). [facility]: Dose Right [facility]: CareDose [facility]: Dose Right [facility]: Teradose 4D [facility]: [employer] RADIATION DOSE: CT Rad equipment meets quality standard of care and radiation dose reduction techniq ues were employed. CTDIvol: 16.8 mGy. DLP: 1003 mGy-cm.mGy. LIMITATIONS: None. FINDINGS: LOWER CHEST: No significant findings. No nodules or infiltrates. NON-CONTRASTED LIVER, SPLEEN, ADRENALS: Evaluation limited by lack of IV contrast. No identified sign ificant masses. PANCREAS: No masses. No peripancreatic inflammatory changes. GALLBLADDER: No identified stones by CT criteria. No inflammatory changes to suggest cholecystitis. RIGHT KIDNEY AND URETER: No suspicious masses. Assessment limited by lack of IV contrast. 2 mm ston e has migrated more distally now at the UVJ. Mild hydronephrosis. LEFT KIDNEY AND URETER: No suspicious masses. Assessment limited by lack of IV contrast. No signifi cant calcifications. No hydronephrosis or hydroureter. AORTA AND RETROPERITONEUM: No aneurysm. No retroperitoneal masses or adenopathy. BOWEL AND PERITONEAL CAVITY: No obvious masses or inflammatory changes. No free fluid. APPENDIX: Normal. PELVIS, BLADDER, AND ABDOMINAL WALL:No abnormal masses. No free fluid. Bladder normal. BONES: No significant findings. OTHER: No other significant finding. IMPRESSION: Interval movement of right ureteral stone to the UVJ. Persistent mild hydronephrosis. COMMENT: Quality ID # [id number]: Final reports with documentation of one or more dose reduction techniques (e.g., Automated exposure control, adjustment of the mA and/or kV according to patient size, use of iterative reconstruction technique) TECHNICAL DOCUMENTATION: JOB ID: [id number] [employer]- All Rights Reserved Reading location - IP/workstation name: [email or web address]
[2019-04-29 16:34] VITALS: BP 108/60
== END 2019-04-29 17:34 | disposition home or self-care (01) ==
LOC: ER 13:27
DX: N23 Unspecified renal colic (principal); R11.2 Nausea with vomiting, unspecified; F17.200 Nicotine dependence, unspecified, uncomplicated; I48.91 Unspecified atrial fibrillation; E78.00 Pure hypercholesterolemia, unspecified; I10 Essential (primary) hypertension; Z87.442 Personal history of urinary calculi; Z88.6 Allergy status to analgesic agent; Z88.2 Allergy status to sulfonamides; Z86.14 Personal history of Methicillin resistant Staphylococcus aureus infection; I25.2 Old myocardial infarction
CPT/HCPCS: 36415; 85025; 80053; 81001; 74176; A9270; J1885; J2270; J7030; 96361; 96374; 96375; 96376; 99284

== ENCOUNTER 2020-07-09 02:44 | Emergency (ER) | payer MEDICARE ==
[2020-07-09 03:54] LABS: ABSOLUTE BASOPHILS # (AUTO) 0.1 10^3/uL (0.0-0.2); ABSOLUTE EOSINOPHILS # (AUTO) 0.1 10^3/uL (0.0-0.6); ABSOLUTE LYMPHOCYTES (AUTO) 2.3 10^3/uL (0.5-4.7); ABSOLUTE MONOCYTES (AUTO) 1.1 10^3/uL (0.1-1.4); ABSOLUTE NEUT (AUTO) 11.9 10^3/uL (1.7-8.2); BASOPHILS % (AUTO) 0.6 % (0-2); EOSINOPHILS % (AUTO) 0.9 % (0-6); HEMOGLOBIN 15.3 g/dL (13.5-17.0); LYMPHOCYTES % (AUTO) 14.6 % (13-45); MEAN CORPUSCULAR HEMOGLOBIN 32.8 pg (27.0-33.4); MEAN CORPUSCULAR HGB CONC 34.6 g/dL (32.0-36.0); MEAN CORPUSCULAR VOLUME 95 fl (80-97); MONOCYTES % (AUTO) 7.1 % (3-13); PLATELET COUNT 225 10^3/uL (150-450); RED BLOOD COUNT 4.65 10^6/uL (4.35-5.55); SEGMENTED NEUTROPHILS % (AUTO) 76.8 % (42-78); TOTAL CELLS COUNTED % (AUTO) 100 %; WHITE BLOOD COUNT 15.5 10^3/uL (4.0-10.5)
[2020-07-09 04:11] LABS: ALBUMIN 3.9 g/dL (3.5-5.0); ALKALINE PHOSPHATASE 108 U/L (38-126); ANION GAP 11 (5-19); ASPARTATE AMINO TRANSFERASE 22 U/L (17-59); BILIRUBIN,DIRECT 0.2 mg/dL (0.0-0.4); BILIRUBIN,TOTAL 0.5 mg/dL (0.2-1.3); BLOOD UREA NITROGEN 11 mg/dL (7-20); CALCIUM 9.2 mg/dL (8.4-10.2); CARBON DIOXIDE 23 mmol/L (22-30); CHLORIDE 103 mmol/L (98-107); CREATINE KINASE 26 U/L (55-170); GLUCOSE 119 mg/dL (75-110); POTASSIUM 4.3 mmol/L (3.6-5.0); TOTAL PROTEIN 6.9 g/dL (6.3-8.2)
[2020-07-09 04:23] LABS: CREATINE KINASE MB < 0.22 ng/mL (<4.55); TROPONIN I < 0.012 ng/mL
--- NOTE | 2020-07-09 05:50 | RADIOLOGY REPORT (SQ) ---
CLINICAL HISTORY: DIZZINESS COMPARISON: 01/08/2016. TECHNIQUE: XR CHEST 2 VIEWS 07/09/2020 12:00 AM ICE CRUSHER FINDINGS: Cardiac silhouette is normal in size. Lungs are clear without consolidation, atelectasis, mass or edema. There is no pleural effusion. There is no pneumothorax. There are no acute osseous findings. IMPRESSION: Clear lungs.
--- NOTE | 2020-07-09 06:33 | ER Document Report ---
ED General - General Chief Complaint: Dizziness Stated Complaint: DIZZINESS/SHORTNESS OF BREATH/HYPERTENSION Time Seen by Provider: 07/09/20 06:11 Primary Care Provider: JENNA STEVENSON PA-C [Primary Care Provider] - Follow up as needed TRAVEL OUTSIDE OF THE [place] IN LAST 30 DAYS: No - HPI Notes: Chief complaint: Headache, dizziness, nausea and elevated blood pressure History of present illness: 39-year-old male with history of Marfan syndrome, hypertension, cigarette smoking and paroxysmal atrial fibrillation states that when he went to bed around 10:30 PM last night he "did not feel just right" complaining of some intermittent dull throbbing headache generalized in nature with associated dizziness, nausea without vomiting and blood pressure elevated to around 165/100 when he measured it. He tried to go to bed but had difficulty sleeping. He ultimately called EMS after midnight. They documented an elevated blood pressure. He was transported here. By the time of arrival here all of his symptoms had resolved and he remains asymptomatic. - Related Data Allergies/Adverse Reactions: hydrocodone [Hydrocodone] Allergy (Severe, Verified 07/09/20 03:27) Anaphylaxis Sulfa (Sulfonamide Antibiotics) Adverse Reaction (Severe, Verified 07/09/20 03:27) hydromorphone HCl [From Dilaudid] Adverse Reaction (Intermediate, Verified 07/09/20 03:27) Past Medical History - General Information source: Patient - Social History Smoking Status: Current Every Day Smoker Frequency of alcohol use: None Drug Abuse: None, Prescription drugs Family History: Reviewed & Not Pertinent - Past Medical History Cardiac Medical History: Reports: Hx Atrial Fibrillation, Hx Heart Attack - x2 D nick Mirza was dr on last hrt attack, Hx Hypercholesterolemia, Hx Hypertension Pulmonary Medical History: Reports: None Neurological Medical History: Reports: None Endocrine Medical History: Reports: Hx Hypothyroidism Renal/ Medical History: Denies: Hx Peritoneal Dialysis Musculoskeletal Medical History: Reports Hx Arthritis Skin Medical History: Reports Hx MRSA Infectious Medical History: Reports: Hx MRSA Past Surgical History: Reports: Hx Orthopedic Surgery - Tendon repair on L thumb, Hx Thyroid Surgery - Thyroidectomy - Immunizations Hx Diphtheria, Pertussis, Tetanus Vaccination: Yes Review of Systems - Review of Systems Notes: Constitutional: Negative for fever. HENT: Negative for sore throat. Eyes: Negative for visual changes. Cardiovascular: Negative for chest pain. Respiratory: Transient shortness of breath. No cough or sputum production. Gastrointestinal: As per HPI. No diarrhea. Genitourinary: Negative for dysuria. Musculoskeletal: Chronic back pain. Skin: Negative for rash. Neurological: As per HPI. 10 point ROS negative except as marked above and in HPI. Physical Exam - Vital signs Vitals: Temp Pulse Resp BP Pulse Ox 97.8 F 58 L 16 164/94 H 99 07/09/20 02:51 07/09/20 02:51 07/09/20 02:51 07/09/20 02:51 07/09/20 02:51 - Notes Notes: GENERAL: Tall slender male appearing in no acute distress. SKIN: Good turgor no rashes. HEAD: Normocephalic atraumatic. EYES: PERRLA. EOMI. Conjunctivae and sclerae clear. EARS: CANALS AND TMS CLEAR. NOSE: CLEAR. MOUTH: Moist mucosa. Good dentition. No stridor or edema. No drooling. NECK: Supple. No masses or thyromegaly. No adenopathy. Carotids 2+ without bruits. No JVD. BACK: Symmetrical without tenderness. CHEST: Respirations unlabored. Breath sounds clear and symmetrical. HEART: Regular rhythm. No murmur gallop or rub. ABDOMEN: Soft nontender without masses, organomegaly or rebound. Bowel sounds normally active. No bruits. GENITALIA: Deferred. EXTREMITIES: No edema. No calf tenderness. Cap refill less than 1.5 seconds. Dorsalis pedis and posterior tibial pulses 3+ and symmetrical. NEUROLOGICAL: GCS 15. Alert and oriented x3. Normal gait. Fluent speech. Cranial nerves II through XII intact. Sensorimotor and cerebellar normal. Normal tone. PSYCHIATRIC: Appropriate affect. Course - Re-evaluation Re-evalutation: 07/09/20 08:10 This 39-year-old man with a history of Marfan syndrome who had some sort of a transient episode of dizziness, dyspnea, headache and transient elevation of blood pressure. All symptoms are resolved by the time I saw him. His physical exam is essentially normal here as his EKG, troponin, chest x-ray, head CT and urinalysis. He appears stable for outpatient follow-up with his PMD and wants to go home. Findings, clinical impression and plan of treatment have been discussed with patient/family. Understanding of current findings and recommendations has been acknowledged by them and there is agreement regarding disposition and follow-up. - Vital Signs Vital signs: Temp Pulse Resp BP Pulse Ox 97.8 F 58 L 12 132/78 H 99 07/09/20 02:51 07/09/20 02:51 07/09/20 07:01 07/09/20 07:01 07/09/20 07:01 - Laboratory Results Result Diagrams: 07/09/20 03:42 07/09/20 03:42 Laboratory Results Interpreted: 07/09/20 07/09/20 07/09/20 03:42 03:42 06:50 WBC 15.5 H Absolute Neuts (auto) 11.9 H Glucose 119 H Creatine Kinase 26 L Urine Urobilinogen 2.0 H Critical Laboratory Results Reviewed: Yes Attending or Supervising Physician who Reviewed Labs: KENTRELL HAQUE Radiology Results Radiology Results Interpreted: 07/09/20 08:09 Chest X-Ray 07/09/20 00:00 IMPRESSION: Clear lungs. Head CT 07/09/20 06:25 IMPRESSION: No acute intracranial findings. Critical Radiology Results Reviewed: No Critical Results Attending or Supervising Physician who Reviewed Radiology: KENTRELL HAQUE - EKG Interpretation by Me Additional EKG results interpreted by me: 07/09/20 06:32 Twelve-lead EKG reviewed by me contemporaneously: 0318 hrs. Indication for study: Hypertension Rhythm: Normal sinus Rate: 62 Intervals: Normal intervals QRS axis: +[address]/T wave changes: None Comparison with prior tracing: Unchanged since prior EKG 04/30/2019 Interpretation: Normal tracing Discharge - Discharge Clinical Impression: Dizziness, Essential hypertension, Marfans syndrome Condition: Stable Disposition: HOME, SELF-CARE Additional Instructions: Continue current medications. Follow-up with your primary care physician within the next 3 to 5 days. Return here as needed for new or worsening symptoms: Pain that is worsening or unimproved Uncontrolled vomiting High fever or shaking chills Overall worsening Referrals: JENNA STEVENSON PA-C [Primary Care Provider] - Follow up as needed
[2020-07-09 07:08] LABS: AMORPHOUS SEDIMENT,URINE TRACE /HPF; APPEARANCE,URINE CLEAR; BILIRUBIN,URINE NEGATIVE (NEGATIVE); COLOR,URINE YELLOW; GLUCOSE, URINE NEGATIVE (NEGATIVE); KETONES,URINE NEGATIVE (NEGATIVE); PROTEIN,URINE NEGATIVE (NEGATIVE)
--- NOTE | 2020-07-09 07:28 | RADIOLOGY REPORT (SQ) ---
CLINICAL HISTORY: headache COMPARISON: 04/30/2019. TECHNIQUE: CT HEAD WITHOUT IV CONTRAST on 07/09/2020 6:25 AM EDUCATION ASSOCIATE This exam was performed according to our departmental dose-optimization program, which includes automated exposure control, adjustment of the mA and/or kV according to patient size and/or use of iterative reconstruction technique. FINDINGS: There is no acute hemorrhage, mass effect or midline shift. Garcia-white differentiation is preserved. There is no hydrocephalus. There is no significant volume loss for age. The calvarium is intact. Orbits and globes are unremarkable. There are mucous retention cysts in the right maxillary sinus. Mastoid air cells are clear. IMPRESSION: No acute intracranial findings.
--- NOTE | 2020-07-09 08:05 | EKG REPORT ---
SEVERITY:- NORMAL ECG - SINUS RHYTHM : Confirmed by: Justin Moctezuma MD 09-Jul-2020 08:04:36
[2020-07-09 08:36] VITALS: BP 117/83
== END 2020-07-09 08:41 | disposition home or self-care (01) ==
LOC: ER 02:44
DX: R42 Dizziness and giddiness (principal); I10 Essential (primary) hypertension; Q87.40 Marfan syndrome, unspecified; R11.0 Nausea; R06.02 Shortness of breath; I48.0 Paroxysmal atrial fibrillation; F17.200 Nicotine dependence, unspecified, uncomplicated; Z86.14 Personal history of Methicillin resistant Staphylococcus aureus infection
CPT/HCPCS: 36415; 70450; 71046; 80053; 81001; 82550; 82553; 84484; 85025; 93005; 93010; 99285